=== PATIENT | female | born 1955 | race Caucasian/White ===

== ENCOUNTER 2016-08-04 15:09 | Emergency (ER) | payer OTHER ==
[~2016-08-04] VITALS: Ht 157.5 cm; Wt 83.0 kg
--- NOTE | 2016-08-04 16:41 | ED GENERAL ADULT ---
History of Present Illness General Chief Complaint: Dizziness Stated Complaint: PT WAS IN THE LOBBY AND FELT FAINT,SWEATING Source: patient, family, old records Exam Limitations: no limitations Vital Signs & Intake/Output Vital Signs & Intake/Output Vital Signs Date Time Temp Pulse Resp B/P B/P Pulse O2 O2 Flow FiO2 Mean Ox Delivery Rate 08/04 1727 97 Room Air 08/04 1702 77 147/82 08/04 1514 96.9 83 15 149/77 93 Room Air Room Air Allergies Coded Allergies: metformin (Mild, NAUSEA 08/04/16) Triage Note: PT TO ED FOR SUDDEN ONSET OF LIGHTHEADEDNESS THAT HAPPENED APPROX 30 MINS PRIOR TO ARRIVAL. DENIES CHEST PAIN, SOB, ABD PAIN. PT IS DIAPHORETIC IN TRIAGE, BUT NO ACUTE DISTRESS NOTED. EKG NSR. Triage Nurses Notes Reviewed? yes Onset: Gradual Duration: hour(s): (1) Timing: remote history Injury Environment: home Severity: moderate Modifying Factors: Improves With: other (TIME). HPI: Patient is a 60-year-old female presenting to the emergency department with chief complaint of gradual onset with malaise, fatigue and diaphoresis that started approximately 3 hours prior to arrival. She was cleaning her house this afternoon and she usually eats something around noon but got distracted. She usually also checkS her blood glucose level at that time which she has not yet done today. She then had to drive someone home around 2 PM and that's when she started feeling ill. She began feeling lightheaded. No dizziness or visual changes. She thought that her blood glucose level might be low so she went to [facility]. She to 2 bites of the [facility] and was not feeling well and cannot finish. She was close enough to the hospital where she decided to drive herself , pulled up to the [facility] and was escorted in by an ENT. At that point she was very diaphoretic. Denies any chest pain palpitations, back pain or shortness of breath at that time. While waiting to be seen in the emergency department she reports that she now feels much better. She has not drank anything since the burri. Family does report that she smokes cigarettes daily and she drinks alcohol daily. Denies any other drug use. No abdominal pain or back pain. She has been under a lot of stress lately as her son was recently admitted to the hospital for drug overdose and she is trying to find him help. She also reports that she has several doctor appointment set up in the near future because they found a spot on her liver and her lung that they want to investigate. No weight changes. Denies any actual syncopal episode but reports that she felt like she was going to pass out. Denies any lower extremities swelling, no recent travel. (BINA DRAPER) Past History Travel History Traveled to [place] past 21 day No Medical History Any Pertinent Medical History? see below for history Neurological: NONE EENT: NONE Cardiovascular: hypertension, HYPERLIPIDEMIA Respiratory: COPD, "DOT ON LUNG" Gastrointestinal: NONE Hepatic: NONE Renal: NONE Musculoskeletal: NONE Psychiatric: NONE Endocrine: DIABETES TYPE II Blood Disorders: NONE Cancer(s): NONE STATIONARY FIREMAN/Reproductive: NONE Influenza Vaccine: 12/23/09 Surgical History Surgical History: non-contributory Psychosocial History Who do you live with Mother What is your primary language Sierra Leonean Tobacco Use: Current Daily Use Daily Tobacco Use Amount/Type: => 5 Cigarettes daily ETOH Use: occasional use Illicit Drug Use: denies illicit drug use Family History Hx Contributory? No (BINA DRAPER) Review of Systems Review of Systems Constitutional: Reports: malaise. Comments Review of systems: See HPI, All other systems negative. Constitutional, no chills fever or weight loss HEENT: No visual changes no sore throat no congestion Cardiovascular: No chest pain ,palpitation , orthopnea or ankle swelling Skin, no jaundice no rashes Respiratory: No dyspnea cough sputum or hemoptysis GI: No nausea no vomiting : No dysuria No hematuria Muscle skeletal: no back pain, no neck pain, Neurologic: No numbness no confusion NO [place] Psych: No stress anxiety or depression,. Heme/endocrine: No bruising no bleeding no polyuria or polydipsia Immunology: No splenectomy or history of AIDS (BINA DRAPER) Physical Exam Physical Exam General Appearance: well developed/nourished, no apparent distress, alert, awake , comfortable Comments: Well-developed well-nourished person in no acute distress HEENT: Normal EENT exam, extraocular motion intact, no nystagmus. Pupils equally round and reactive to light and accommodation. Nose is atraumatic. External auditory canal and Tympanic membranes clear. Pharynx normal. No swelling or edema. Neck: Supple, no lymphadenopathy, normal range of motion without pain or tenderness Back: Nontender Cardiovascular: Regular rate and rhythms no rubs or gallops, normal JVP Respiratory: Chest nontender. No respiratory distress.breath sounds clear to auscultation bilaterally Abdomen: Soft, obese, nontender nondistended, no appreciable organomegaly. Normal bowel sounds. No ascites Extremity: No edema, no calf tenderness to palpation, normal and equal pulses. Muscular strength is 5 out of 5 in all extremities. Security Guards Dispatcher strength is equal and symmetric bilaterally. Neuro: Alert oriented x3, motor sensory normal, cranial nerves II through XII grossly intact. Cerebellar testing is unremarkable. Skin: No appreciable rash on exposed skin, skin is warm and dry. Psych: Mood and affect is normal, memory and judgment is normal. Core Measures ACS in differential dx? Yes CVA/TIA Diagnosis: No Severe Sepsis Present: No Septic Shock Present: No (BINA DRAPER) Progress Differential Diagnoses I considered the following diagnoses in my evaluation of the patient: Pulmonary embolus, ACS, hypoglycemia, medication reaction, aortic dissection, heatstroke, thyroid dysfunction Plan of Care: Orders Procedure Date/time Status MISTAKE 08/04 1640 Active Telemetry/Credit Charge Authorizer 08/04 1640 Active FingerStick- Glucose 08/04 1640 Active EKG 08/04 1518 Active Laboratory Tests 08/04/16 1646: D-Dimer Cancelled 08/04/16 1518: CBC w Diff Cancelled, WBC Cancelled, RBC Cancelled, Hgb Cancelled, Hct Cancelled , MCV Cancelled, MCH Cancelled, RDW Cancelled, Plt Count Cancelled, MPV Cancelled, PUBS MCHC Cancelled, Serum Alcohol Cancelled Initial ED EKG: NSR Prior EKG: unchanged Comments: Patient will like to leave prior to workup AGAINST MEDICAL ADVICE. She is alert and oriented likely intact. She'll sign AGAINST MEDICAL ADVICE form. Patient's orthostatics are negative. Blood glucose level at this time is 123. Unclear reason why patient became diaphoretic. It was explained to her that she potentially could be having a heart attack even the EKG is essentially unchanged. Patient is aware of all risks by leaving AGAINST MEDICAL ADVICE. She'll return for worsening symptoms or concerns. This could also be related to new medication that she was started on 2 days ago. (BINA DRAPER) Departure Departure Time of Disposition: 170 Disposition: LEFT AGAINST MEDICAL ADVICE Condition: Stable Clinical Impression Primary Impression: Near syncope Referrals: KIET MCDUFFIE,ERIC (PCP/Family) Additional Instructions: Follow-up with your primary care physician call TO MAKE appointment. Increase fluids. Make sure recheck blood glucose level often throughout the day. He well-balanced meals. Departure Forms: Customer Survey General Discharge Information (BINA DRAPER) PA/ACTION FINISHER Co-Sign Statement Statement: ED Attending supervision documentation- [] I saw and evaluated the patient. I have also reviewed all the pertinent lab results and diagnostic results. I agree with the findings and the plan of care as documented in the PA's/ACTION FINISHER's documentation. [X] I have reviewed the ED Record and agree with the PA's/ACTION FINISHER's documentation. [] Additions or exceptions (if any) to the PAs/ACTION FINISHER's note and plan are summarized below: [] (NICOLLE MCDUFFIE,BETH Angelo) Critical Care Note Critical Care Note Critical Care Time: non-applicable (BINA DRAPER)
[2016-08-04 17:02] VITALS: BP 147/82
== END 2016-08-04 17:32 | disposition left against medical advice (07) ==
LOC: ERH 15:09
DX: R55 Syncope and collapse (principal); I10 Essential (primary) hypertension; Z72.0 Tobacco use; E11.9 Type 2 diabetes mellitus without complications; J44.9 Chronic obstructive pulmonary disease, unspecified
CPT/HCPCS: 93005; 93010; G0480

== ENCOUNTER 2016-09-30 02:40 | Inpatient (IN) | payer OTHER ==
[~2016-09-30] VITALS: Ht 154.9 cm; Wt 85.7 kg
[~2016-09-30 02:40] MED LIST: ADVAIR 100-501 EACH INH; AMARYL1 M1 PO; ASPIRIN EC81 M1 PO; ATORVASTATIN CA40 M1 PO; FOLIC ACID0.8 M2 PO; HUMALOG100 UNIT/1; LEVEMIR100 UNIT/1; LISINOPRIL-HCT1 EACH PO; METOPROLOL SUCC25 M1 PO; PROAIR HFA8.5 GM INH; TRADJENTA5 M1 PO; TUDORZA PRESS400 MCG PO
--- NOTE | 2016-09-30 14:09 | Admission Core Measures ---
Acute Coronary Syndrome Inclusion Criteria ACS Diagnosis No Inpatient Core Measures LDL Reminder: If No, please order W/I first 24hr of stay Congestive Heart Failure Inclusion Criteria CHF Diagnosis No Cerebrovascular accident Inclusion Criteria CVA/TIA Diagnosis No Inpatient Core Measures Bedside Swallow Eval Reminder: If BSE failed, place ST order Antithrombotic Reminder: Order Antithrombotic Medication by end of day 2 Antithrombotic Reminder: Document Reason Antithrombotic Not ordered by end of day 2 AFIB/Flutter Reminder: If Present, add to problem list AFIB/Flutter Reminder: Order Anticoag Medication for pts with AFIB/Flutter Atherosclerosis Reminder: If Present, add to problem list LDL Reminder: If No, please order W/I first 24hr of stay PT Order Reminder: If No, please order Venous thromboembolism Inpatient Core Measures VTE Risk Factors: Age > 40, Obesity, [facility] d/t No contraindications No VTE Pharm Prophylaxis d/t No contraindications Inclusion Criteria - Per Current guidelines, there needs to be overlap - treatment for the first 5 days of Warfarin therapy. - Parenteral Anticoagulation (IV or SC) needs to be - given along with Warfarin therapy. VTE Diagnosis No VTE Type NONE VTE Confirmed by (Test) NONE Problem List As ranked by this Provider includes Assessment & Plan 1. S/P thoracotomy 2. COPD (chronic obstructive pulmonary disease) 3. Diabetes 4. Hypertension 5. Lung nodule HOME MEDS Home Med List Albuterol Sulfate (Proair Hfa) 90 MCG HFA.AER.AD 2 PUF INH Q4-6 PRN PRN COPD (Reported) Aspirin (Ecotrin*) 81 MG TABLET.DR 1 TAB PO DAILY PROPHO (Reported) Atorvastatin Calcium 40 MG TABLET 1 TAB PO DAILY CHOLESTEROL (Reported) Fluticasone-Salmeterol (Advair 100-50 Diskus) 100 MCG-50 MCG/DOSE BLST.W.DEV 1 PUF INH BID COPD (Reported) [FOLIC ACID] 800 MCG PO DAILY PROPHO (Reported) Glimepiride (Amaryl) 4 MG TABLET 1 TAB PO DAILY DM II (Reported) Linagliptin (Tradjenta) 5 MG TABLET 1 TAB PO DAILY DM II (Reported) Lisinopril/Hydrochlorothiazide (Lisinopril-Hctz 20-12.5 MG Tab) 20 MG-12.5 MG TABLET 1 TAB PO DAILY HTN (Reported) Metoprolol Succinate 25 MG TAB 1 TAB PO BID HTN (Reported)
--- NOTE | 2016-09-30 15:43 | Cons- CRCU ---
See Addendum RAHUL MCDUFFIERONNIE 09/30/16 1543: General Information and HPI Consulting Request Date of Consult: 09/30/16 Requested By: Dr. Sierra History of Present Illness: 60 year old woman with past medical history of NIDDM, HTN, HLD, and COPD admitted to same day surgery for right upper lobe wedge resection. Patient was transferred to the ICU for closer observation and medical management postoperatively. Presently patient reports moderate/severe right sided chest pain that she attributes to the surgical procedure. Otherwise she states that she has had intermittent chills, but admits that these aren't new. She appears sedated and lethargic. Her daughter whom is present at bedside feels it is because of the pain medications. She otherwise denies any fever, headache, substernal chest pain/discomfort, shortness of breath, cough, nausea, vomiting, diarrhea. Allergies/Medications Allergies: Coded Allergies: metformin (Mild, NAUSEA 08/04/16) Home Med List: Aclidinium [place] (Tudorza Pressair) 400 MCG/ACTUATION AER.POW.BA COPD ( Reported) Albuterol Sulfate (Proair Hfa) 90 MCG HFA.AER.AD 2 PUF INH Q4-6 PRN PRN COPD (Reported) Aspirin (Ecotrin*) 81 MG TABLET.DR 1 TAB PO DAILY PROPHO (Reported) Atorvastatin Calcium 40 MG TABLET 1 TAB PO DAILY CHOLESTEROL (Reported) [FOLIC ACID] 800 MCG PO DAILY PROPHO (Reported) Glimepiride (Amaryl) 1 MG TABLET 2 TAB PO DAILY DIABETES (Reported) Insulin Glargine,Hum.rec.anlog (Lantus Solostar) 100 UNIT/ML (3 ML) INSULN.PEN 76 UNIT SC DAILY DIABETES (Reported) Insulin Lispro (Humalog) 100 UNIT/ML CARTRIDGE DM II (Reported) Linagliptin (Tradjenta) 5 MG TABLET 1 TAB PO DAILY DM II (Reported) Metoprolol Succinate 25 MG TAB 1 TAB PO BID HTN (Reported) Current Medications: Current Medications Sig/Hilton Start time Last Medication Dose Route Stop Time Status Admin Acetaminophen 1,000 MG Q6 09/30 1800 AC IV 10/01 1201 Albuterol Sulfate 3 ML Q4 09/30 2200 AC INH Albuterol Sulfate 2 PUF Q4P PRN 09/30 1645 AC INH Aspirin Buffered 81 MG DAILY 10/01 1000 AC PO Atorvastatin Calcium 40 MG 1700 09/30 1700 AC PO Budesonide/ 2 PUF BID 09/30 2200 AC Formoterol Fumarate INH Cefazolin Sodium 2,000 MG IQ8 09/30 2000 CAN IV 10/01 0801 Cefazolin Sodium 2 GM Q8H 09/30 2000 AC 09/30 N/A 1 UNIT IV 10/01 0429 2051 Docusate Sodium 100 MG BID 09/30 2200 AC PO Fentanyl Citrate 250 MCG .STK-MED ONE 09/30 1141 DC IM 09/30 1142 Glimepiride 4 MG DAILY AC 10/01 0700 AC PO Heparin Sodium 5,000 UNIT Q8 09/30 2200 AC (Porcine) SC Hydrochlorothiazide 12.5 MG DAILY 10/01 1000 AC PO Hydromorphone HCl 2 MG .STK-MED ONE 09/30 1140 DC IM 09/30 1141 Insulin Aspart 0 TIDAC 09/30 1700 AC SC Lisinopril 20 MG DAILY 10/01 1000 AC PO Metoprolol Tartrate 50 MG BID 09/30 2200 AC PO Midazolam HCl 2 MG .STK-MED ONE 09/30 1141 DC IM 09/30 1142 Morphine Sulfate 2 MG Q2P PRN 09/30 1900 AC 09/30 IV 1927 Morphine Sulfate 4 MG Q2P PRN 09/30 1900 AC IV Ondansetron HCl 4 MG Q6P PRN 09/30 1900 AC IV Oxycodone HCl 5 MG Q4-6 PRN PRN 09/30 1900 AC PO Oxycodone HCl 10 MG Q4-6 PRN PRN 09/30 1900 AC PO Pantoprazole Sodium 40 MG DAILY 10/01 1000 AC IV Sitagliptin Phosphate 50 MG DAILY 10/01 1000 AC PO Sodium Chloride 1,000 ML Q13H 09/30 1900 AC 09/30 IV 1927 Tiotropium [place] 1 PUF DAILY 10/01 1000 AC INH Review of Systems Review of Systems Constitutional: Reports: see HPI. Past History Medical History Neurological: NONE EENT: NONE Cardiovascular: hypertension, hyperlipidemia Respiratory: COPD, "DOT ON LUNG" Gastrointestinal: NONE Hepatic: NONE Renal: NONE Musculoskeletal: NONE Psychiatric: NONE Endocrine: DIABETES TYPE II Blood Disorders: NONE Cancer(s): NONE INJECTION MOLD TOOLING TECHNICIAN/Reproductive: NONE Surgical History Surgical History: non-contributory Psychosocial History Smoking Status: Current Everyday Smoker Exam & Diagnostic Data Last 24 Hrs of Vital Signs/I&O Vital Signs Date Time Temp Pulse Resp B/P B/P Pulse O2 O2 Flow FiO2 Mean Ox Delivery Rate 10/01 1999 97.9 65 22 120/70 09/30 1854 97 Non 100% ReBreather Physical Exam General Appearance: well developed/nourished, no apparent distress, alert, awake , comfortable Other Physical Findings: General-well developed, well nourished middle aged woman in no acute distress HEENT-NCAT, PERRL, EOMI, anicteric sclera, moist mucous membranes, nasal cannula Cardio/Chest- S1, S2 w/o m/g/r; surgical dressing in place on right lateral chest wall with scant amount of serosangious drainage Lung-CTA bilaterally with diminished bibasilar breath sounds Abdomen-Soft, nontender, nondistended, bowel sounds intact Neuro-Awake and alert, oriented to person/place/time, mildly lethargic, CN II- XII grossly intact Ext-normal pulses, no cyanosis/clubbing/edema Last 48 Hrs of Labs/Johann: None Diagnostic Data CXR Results SERVICE DATE: 09/30/16- EXAM TYPE: RAD - XRY-CHEST XRAY, ONE VIEW ONLY IMPRESSION: Fluoroscopic imaging assistance was provided for the bronchoscopy procedure. SERVICE DATE: 09/30/16-1621 EXAM TYPE: RAD - XRY-PORTABLE CHEST XRAY IMPRESSION: Postoperative changes on the right, follow-up imaging is recommended. Assessment/Plan Impression/Plan: 60 year old woman with multiple medical problems admitted for right upper lobe wedge resection. Problem List: -Right upper lobe mass s/p wedge resection -Hypertension -Hyperlipidemia -Insulin-dependent diabets mellitus Plan: -ICU -Intubated -Accuchecks Q6H with Novolin while NPO with D51/2NS fluids -Restart Novolog / Levemir when eating -Chest tube care per surgical team -Post-thoracotomy care per protocol -Incentive spirometry -TRC -Supplemental oxygen, goal > 92%, taper as tolerated -NPO, advance diet per surgical team -DVT PPx at all times -FULL CODE Consult Acknowledgment - Thank you for your consult request. MIKE RANDALL MD 09/30/16 9234: Assessment/Plan Other Findings/Comments: IMike M.D. have examined this patient, reviewed available EMR data, personally reviewed images, discussed with resident/PA/NETWORK STRATEGIST, discussed management plan with housestaff and nursing staff, discussed managment plan all of healthcare providers, discussed management plan with patient and/or family, agreed with resident/PA/NETWORK STRATEGIST. The past history and parts of the chart have been autopopulated. Impression 60-year-old woman with a right upper lobe mass status post resection Plan Postthoracotomy care Incentive spirometry TRC/nebs DVT prophylaxis at all times Monitor ins and outs Monitor I's Postoperative management per cardiothoracic surgery TTS 35 min Additionally patient had a bronchoscopy prior to VATS including placement of a fiducial marker and methylene blue markings. Consult Acknowledgment - Thank you for your consult request.
--- NOTE | 2016-09-30 15:53 | RADIOLOGY REPORT ---
EXAMINATION:\H\ \N\XR CHEST CLINICAL INFORMATION: Navigational bronchoscopy for right upper lobe nodule. COMPARISON: CXR from 09/27/2016 TECHNIQUE: Fluoroscopic imaging of the chest was utilized by Dr. Sierra during navigation bronchoscopy for the right upper lobe nodule. Number of saved images: 7 Fluoroscopy time: 4.1 minutes. Dose: 77.4 mGy FINDINGS: Fluoroscopic imaging of the chest was performed during navigation bronchoscopy, nodule biopsy and placement of fiducial marker. Please refer to the operative report. IMPRESSION: Fluoroscopic imaging assistance was provided for the bronchoscopy procedure.
--- NOTE | 2016-09-30 16:07 | Admission Certification ---
Admission Certification Certification Statement - As attending physician, I certify that at the time of - admission, based on clinical presentation, severity of - symptoms, need for further diagnostic testing and - therapeutic interventions, and risk of adverse outcomes - without in-hospital treatment, in my clinical assessment, - this patient requires an acute hospital stay for a minimum - of two nights or longer. I have also considered psychsocial - factors such as support system, advanced age, financial - issues, cognitive issues, and failed out-patient treatments, - past re-admission history, safety of patient, and lack of - compliance as applicable. Specific rationale supporting this admission is: Major chest surgery with intensive care unit stay
--- NOTE | 2016-09-30 16:12 | Operative Report ---
Operative/Inv Procedure Report Surgery Date: 09/30/16 Name of Procedure: Navigational bronchoscopy with ink marking and fiducial placement Pre-Operative Diagnosis: Right upper lobe nodule Post-Operative Diagnosis: Same Estimated Blood Loss: none Surgeon/Accounts Collector: Mike KASPER MD,TETE Barrios JR Anesthesia: general endotracheal tube Operative/Procedure Note Note: After placement of monitoring lines and induction of general anesthesia survey bronchoscopy was done. There was significant inspissated mucus throughout the bronchial tree and this was cleared clearly as possible. The navigational system was then registered and the guider catheter was advanced to the posterior segmental bronchus. The catheter came within 1 cm of the nodule. 0.75 mL of methylene blue was injected and a fiducial marker was placed adjacent to the nodule. The system was removed and there was no evidence of bleeding. The procedure then continued as the thoracoscopy. CC: PRAKASH MCDUFFIE,MIKE
--- NOTE | 2016-09-30 16:17 | Operative Report ---
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 The double-lumen endotracheal tube was appropriately positioned with fiberoptic bronchoscopy. The patient was placed in the left lateral decubitus position and her right chest was prepped and draped in sterile fashion. An access thoracostomy site was made and 3 further working ports were used. The lung was incredibly noncompliant and there was poor separation station of the fissures. During the procedure patient did have some bouts of desaturations which were corrected. There was also a friability to the lung tissue itself. Given these findings a decision was made that lobectomy would probably not be a good option for her postoperatively with concerns for her having significant respiratory problems. The thoracoscope was introduced and the methylene blue was seen on the surface of the lung. This area was grasped and the was then resected with multiple applications of the Endo JARVIS stapler. Intraoperative frozen section showed a very small nodule with good margins and a suspicion of non-small cell carcinoma with permanent histology pending. The lung was irrigated and all of the sites were found to be hemostatic. A 32 Malay chest tube was placed anteriorly to the apex and the lung was then reinsufflated under direct vision. The access thoracostomy sites were closed with deep Vicryl suture followed by running Vicryl subcuticular suture. Patient tolerated the procedure well and brought to recovery room awake and extubated in stable condition. CC: KIET MCDUFFIE,ERIC; PRAKASH MCDUFFIE,LAITH
--- NOTE | 2016-09-30 16:57 | RADIOLOGY REPORT ---
EXAMINATION: XR PORTABLE CHEST CLINICAL INFORMATION: Status post right upper lobe wedge resection. COMPARISON: 09/27/2016. TECHNIQUE: Portable frontal view of the chest was obtained. FINDINGS: Lung volumes are diminished. Right-sided thoracostomy is identified with its tip at the medial apex without evidence of an associated pneumothorax on this image which is is not labeled as upright or supine. There is a small-moderate amount of subcutaneous emphysema in the right chest wall inferior to the tube. There is an oval focus of probable atelectasis along the wedge resection staple line with mild bibasilar atelectasis also noted. IMPRESSION: Postoperative changes on the right, follow-up imaging is recommended.
[2016-09-30] MEDS ORDERED: LANTUS SOL100 UNIT/1 SC (17:05)
[2016-09-30 20:00] VITALS: BP 120/70
--- NOTE | 2016-09-30 20:19 | NUR ---
ADMITTED FROM PACU RIGHT UPPER LOBECTOMY CT TO LWS ROSALINDA PATENT DROWSY BUT AROUSABLE VSS SEE FLOWSHEET CARTER PATENT IVF ORDERED MEDICATED FOR PAIN
[2016-09-30 22:00] VITALS: BP 122/78
[2016-10-01] VITALS (9 sets, daily range): BP systolic 80–112; BP diastolic 42–64
--- NOTE | 2016-10-01 00:31 | PN- Thoracic Surgery ---
Subjective Subjective: Postop check Pt admits to moderate discomfort at the chest tube site, but describes it more as a "pressure" vs. true pain, slightly worse with deep breathing. She is tolerating sips of water. No nausea or emesis. Quinteros catheter and arterial line remain in place. Objective Vital Signs and I&Os Vital Signs Date Time Temp Pulse Resp B/P B/P Pulse O2 O2 Flow FiO2 Mean Ox Delivery Rate 09/300 Nasal 5.0L Cannula 09/30 2199 97.8 66 20 122/78 09/30 2157 66 126/62 10/01 1999 97.9 65 22 120/70 09/30 1854 97 Non 100% ReBreather Intake & Output 10/01 0810/01 0000 09/30 1600 09/30 0809/30 0000 09/29 1600 Intake Total 575 Output Total 140 Balance 435 Intake, IV 375 Intake, Oral 200 Output, Chest 40 Tube Drainage Output, Urine 100 Patient 190 lb Weight Weight Reported by Patient Measurement Method Physical Exam: Gen: Pt is awake and alert. Sitting upright in bed at almost 90 degrees for comfort. NAD. Cardiac: regular Pulmonary: Coarse lung sounds noted with expiratory rhonchi, worse on the right side. Aeration noted throughout. CT with a small amount of serosanginous output. Dressings with moderate bloody drainage, but not leaking outside borders. Abdomen: Soft, distended, nontender. Ext: No significant edema or calf tenderness. Assessment/Plan Assessment/Plan Patient is a 60-year-old female with a history of COPD, insulin-dependent diabetes, hypertension, hyperlipidemia, who is now postoperative day #0 status post right VATS wedge resection. Patient tolerated the procedure well and was transferred to the critical care unit (as planned) with [address]. She remains hemodynamically stable, but has a small air leak and continues to require 5 L of O2 to maintain her sats. -Continue chest tube to Pleur-evac suction. Follow-up chest x-ray in the morning. -Encourage incentive spirometer and deep breathing. -Pain control with intermittent morphine and IV acetaminophen. -Continue ice chips and sips of water for now. We will advance diet as tolerated and with increased bowel function, likely clears in the morning. -Antibiotics for 24 hour prophylaxis. -Subcutaneous heparin and Alps for DVT prophylaxis. -Home meds have been resumed, including beta stephanie. - Core Measures/Miscellaneous Venous Thromboembolism VTE Risk Factors: Age > 40, Cancer/chemo/oth therapy, Smoking, Surgery VTE Contraindications: No Contraindications VTE Diagnosis: No VTE Type: NONE VTE Confirmed by (Test): NONE Beta Stephanie Is Beta Stephanie a Home Med? Yes If Yes, Was This Ordered Today? Yes Antibiotics Is Patient on Antibiotics? Yes If Yes: prophylaxis
[2016-10-01 05:30] LABS: ABSOLUTE BASOPHIL COUNT 0 /CUMM (0.0-0.2); ABSOLUTE EOSINOPHIL COUNT 0 /CUMM (0.0-0.7); ABSOLUTE GRANULOCYTE CT 13.3 /CUMM (1.4-6.5); ABSOLUTE MONOCYTE COUNT 0.9 /CUMM (0.10-0.60); BASOPHIL % 0 % (0.0-2.0); EOSINOPHIL % 0 % (0-5); GRANULOCYTE % 87.9 % (42.2-75.2); HEMATOCRIT 42.7 % (37-47); MEAN CORPUSCULAR HGB 33.8 PG (27.0-31.0); MEAN CORPUSCULAR VOLUME 102.1 FL (81.0-99.0); MEAN PLATELET VOLUME 9.1 FL (7.4-10.4); PLATELET COUNT 185 /CUMM (130-400); RBC DISTRIBUTION WIDTH 15.2 % (11.5-14.5); RED BLOOD CELL CT 4.18 /CUMM (4.20-5.40); WHITE BLOOD CELL COUNT 15.1 /CUMM (4.8-10.8)
--- NOTE | 2016-10-01 05:53 | PN- Thoracic Surgery ---
Subjective Subjective: No significant changes versus last night. Patient admits to minor discomfort and awareness of the chest tube, but denies significant pain. A productive cough and makes effort to use her spirometer. She is tolerating sips of water and requesting increased by mouth intake. No nausea or vomiting. Objective Vital Signs and I&Os Vital Signs Date Time Temp Pulse Resp B/P B/P Pulse O2 O2 Flow FiO2 Mean Ox Delivery Rate 10/01 0600 62 20 90/54 10/01 0402 62 20 101/56 10/01 0402 96 Nasal 4.0L Cannula 10/01 0200 62 24 97/61 10/01 0113 97 Nasal 4.0L Cannula 10/01 0000 97.7 66 24 112/54 10/01 0000 93 Nasal 5.0L Cannula 10/01 0000 97.7 66 24 112/54 93 Nasal 5.0L Cannula 09/30 2250 Nasal 5.0L Cannula 09/30 2200 97.8 66 20 122/78 09/30 2157 66 126/62 09/30 2000 97.9 65 22 120/70 09/30 1854 97 Non 100% ReBreather Intake & Output 10/01 0800 10/01 0000 09/30 1600 09/30 0800 09/30 0000 09/29 1600 Intake Total 1050 575 Output Total 310 140 Balance 740 435 Intake, IV 850 375 Intake, Oral 200 200 Output, Chest 10 40 Tube Drainage Output, Urine 300 100 Patient 190 lb Weight Weight Reported by Patient Measurement Method Physical Exam: Gen.: Patient is awake and alert. He sits upright in the bed. Cardiac: Regular Pulmonary: Moderate amount of drainage on the dressing sites, unchanged versus last night. They were not changed as they can be changed at the time of the chest tube removal. Chest tube output is minimal and serosanguineous. There is a small air leak. Breath sounds continue to be rhonchorous. Results Last 48 Hours of Labs: Laboratory Tests 10/01 0436 Chemistry Sodium (137 - 145 mmol/L) 134 L Potassium (3.5 - 5.1 mmol/L) 5.0 Chloride (98 - 107 mmol/L) 98 Carbon Dioxide (22 - 30 mmol/L) 27 Anion Gap (5 - 16) 9 BUN (7 - 17 mg/dL) 26 H Creatinine (0.5 - 1.0 mg/dL) 0.8 Estimated GFR (>60 ml/min) > 60 BUN/Creatinine Ratio (7 - 25 %) 32.5 H Glucose (65 - 99 mg/dL) 198 H Phosphorus (2.5 - 4.5 mg/dL) 5.3 H Magnesium (1.6 - 2.3 mg/dL) 1.7 Total Bilirubin (0.2 - 1.3 mg/dL) 0.5 Direct Bilirubin (< 0.4 mg/dL) 0.3 AST (14 - 36 U/L) 45 H ALT (9 - 52 U/L) 41 Alkaline Phosphatase (<127 U/L) 58 Total Protein (6.3 - 8.2 g/dL) 6.7 Albumin (3.5 - 5.0 g/dL) 3.8 Hematology CBC w Diff NO MAN DIFF REQ WBC (4.8 - 10.8 /CUMM) 15.1 H RBC (4.20 - 5.40 /CUMM) 4.18 L Hgb (12.0 - 16.0 G/DL) 14.1 Hct (37 - 47 %) 42.7 MCV (81.0 - 99.0 FL) 102.1 H MCH (27.0 - 31.0 PG) 33.8 H RDW (11.5 - 14.5 %) 15.2 H Plt Count (130 - 400 /CUMM) 185 MPV (7.4 - 10.4 FL) 9.1 Gran % (42.2 - 75.2 %) 87.9 H Lymphocytes % (20.5 - 51.1 %) 6.5 L Monocytes % (1.7 - 9.3 %) 5.6 Eosinophils % (0 - 5 %) 0 Basophils % (0.0 - 2.0 %) 0 L Absolute Granulocytes (1.4 - 6.5 /CUMM) 13.3 H Absolute Lymphocytes (1.2 - 3.4 /CUMM) 1.0 L Absolute Monocytes (0.10 - 0.60 /CUMM) 0.9 H Absolute Eosinophils (0.0 - 0.7 /CUMM) 0 Absolute Basophils (0.0 - 0.2 /CUMM) 0 PUBS MCHC (33.0 - 37.0 G/DL) 33.0 Assessment/Plan Assessment/Plan Patient is a 60-year-old female with a history of COPD, insulin-dependent diabetes, hypertension, hyperlipidemia, who is now postoperative day #1 status post right VATS wedge resection. She has she has [address] and remains hemodynamically stable. -Continue chest tube to Pleur-evac suction. Follow-up chest x-ray this morning. -Encourage incentive spirometer and deep breathing. -Out of bed to chair. -Pain control with intermittent morphine and IV acetaminophen. -Advance to clears. Hep-Lock IV fluids. -DC Quinteros and arterial line. -Antibiotics for 24 hour prophylaxis complete. -Subcutaneous heparin and Alps for DVT prophylaxis. -Home meds have been resumed, including beta stephanie. -Will d/w attending. Core Measures/Miscellaneous Venous Thromboembolism VTE Risk Factors: Age > 40, Cancer/chemo/oth therapy, Smoking, Surgery VTE Contraindications: No Contraindications VTE Diagnosis: No VTE Type: NONE VTE Confirmed by (Test): NONE Beta Stephanie Is Beta Stephanie a Home Med? Yes If Yes, Was This Ordered Today? Yes Antibiotics Is Patient on Antibiotics? No
--- NOTE | 2016-10-01 08:09 | RADIOLOGY REPORT ---
EXAMINATION: XR PORTABLE CHEST CLINICAL INFORMATION: Status post right upper wedge resection. COMPARISON: 09/30/2016 TECHNIQUE: Portable frontal view of the chest was obtained. FINDINGS: Patient status post wedge resection of right upper lobe. Lungs are hypoinflated and there are persistent bibasilar opacities compatible with atelectasis, slightly increased compared to the prior radiograph. Also, there is persistent hazy opacity in the right upper lobe which could represent atelectasis and/or pulmonary hemorrhage. The right thoracostomy tube terminates in the medial right apex. No pneumothorax. Cardiac silhouette exhibits stable enlargement. No acute osseous abnormality. IMPRESSION: 1. Hypoinflated lungs and bibasilar atelectasis, status post right upper lobe wedge resection and thoracostomy tube placement. 2. Persistent hazy opacity in the right upper lung from atelectasis or possibly postbiopsy hemorrhage. 3. Cardiomegaly without pulmonary edema.
--- NOTE | 2016-10-01 08:13 | Event Note ---
Event Note Event Note: Chest tube placed to water seal. ? removal later today vs tomorrow.
--- NOTE | 2016-10-01 13:00 | NUR ---
NOTIFIED SURGICAL [facility] MEYERS THAT PATIENT WOULD LIKE TO SPEAK WITH DR KASPER REGARDING SURGERY AND FUTURE PLAN OF CARE. PA WILL NOTIFY DR KASPER.
--- NOTE | 2016-10-01 13:28 | PN- Pulmonary ---
Subjective HPI/Critical Care Issues: No significant changes versus last night. Patient admits to minor discomfort and awareness of the chest tube, but denies significant pain. A productive cough and makes effort to use her spirometer. She is tolerating sips of water and requesting increased by mouth intake. No nausea or vomiting. Objective Current Medications: Current Medications Sig/Hilton Start time Last Medication Dose Route Stop Time Status Admin Acetaminophen 1,000 MG Q6 09/30 1800 DC 10/01 IV 10/01 1201 1246 Albuterol Sulfate 3 ML Q4 09/30 2200 AC 10/01 INH 0918 Albuterol Sulfate 2 PUF Q4P PRN 09/30 1645 AC INH Aspirin Buffered 81 MG DAILY 10/01 1000 AC 10/01 PO 1014 Atorvastatin Calcium 40 MG 1700 09/30 1700 AC 09/30 PO 2155 Budesonide/ 2 PUF BID 09/30 2200 AC 10/01 Formoterol Fumarate INH 1015 Cefazolin Sodium 2,000 MG IQ8 09/30 2000 CAN IV 10/01 0801 Cefazolin Sodium 2 GM Q8H 09/30 2000 DC 10/01 N/A 1 UNIT IV 10/01 0429 0430 Docusate Sodium 100 MG BID 09/30 2200 AC 10/01 PO 1013 Glimepiride 4 MG DAILY AC 10/01 0700 AC 10/01 PO 0837 Heparin Sodium 5,000 UNIT Q8 09/30 2200 AC 10/01 (Porcine) SC 0545 Hydrochlorothiazide 12.5 MG DAILY 10/01 1000 AC 10/01 PO 1014 Hydromorphone HCl 2 MG .STK-MED ONE 09/30 1738 DC IM 09/30 1739 Insulin Aspart 0 TIDAC 09/30 1700 AC 10/01 SC 1245 Lisinopril 20 MG DAILY 10/01 1000 AC 10/01 PO 1015 Metoprolol Tartrate 50 MG BID 09/30 2200 AC 10/01 PO 1014 Morphine Sulfate 2 MG Q2P PRN 09/30 1900 AC 09/30 IV 1927 Morphine Sulfate 4 MG Q2P PRN 09/30 1900 AC 10/01 IV 1245 Ondansetron HCl 4 MG Q6P PRN 09/30 1900 AC IV Oxycodone HCl 5 MG Q4-6 PRN PRN 09/30 1900 AC PO Oxycodone HCl 10 MG Q4-6 PRN PRN 09/30 1900 AC PO Pantoprazole Sodium 40 MG DAILY 10/01 1000 AC 10/01 IV 1015 Sitagliptin Phosphate 50 MG DAILY 10/01 1000 AC 10/01 PO 1014 Sodium Chloride 1,000 ML Q13H 09/30 1900 DC 09/30 IV 1927 Tiotropium [place] 1 PUF DAILY 10/01 1000 AC 10/01 INH 1016 Vital Signs & I&O Last 24 Hrs of Vitals and I&O: Vital Signs Date Time Temp Pulse Resp B/P B/P Pulse O2 O2 Flow FiO2 Mean Ox Delivery Rate 10/01 1200 Nasal 1.0L Cannula 10/01 1014 68 134/70 10/01 0935 93 Nasal 1.0L Cannula 10/01 0800 Nasal Cannula 10/01 0800 97.2 68 18 110/64 95 Nasal 4.0L Cannula 10/01 0600 62 20 90/54 10/01 0402 62 20 101/56 10/01 0402 96 Nasal 4.0L Cannula 10/01 0200 62 24 97/61 10/01 0113 97 Nasal 4.0L Cannula 10/01 0000 97.7 66 24 112/54 10/01 0000 93 Nasal 5.0L Cannula 10/01 0000 97.7 66 24 112/54 93 Nasal 5.0L Cannula 09/30 2250 Nasal 5.0L Cannula 09/30 2200 97.8 66 20 122/78 09/30 2157 66 126/62 09/30 2000 97.9 65 22 120/70 09/30 1854 97 Non 100% ReBreather Intake & Output 10/01 1600 10/01 0800 10/01 0000 Intake Total 1050 575 Output Total 310 140 Balance 740 435 Intake, IV 850 375 Intake, Oral 200 200 Output, Chest 10 40 Tube Drainage Output, Urine 300 100 Patient 190 lb Weight Weight Reported by Patient Measurement Method Laboratory Tests 10/01 10/01 0845 0436 Chemistry Sodium (137 - 145 mmol/L) 134 L Potassium (3.5 - 5.1 mmol/L) 4.8 5.0 Chloride (98 - 107 mmol/L) 98 Carbon Dioxide (22 - 30 mmol/L) 27 Anion Gap (5 - 16) 9 BUN (7 - 17 mg/dL) 26 H Creatinine (0.5 - 1.0 mg/dL) 0.8 Estimated GFR (>60 ml/min) > 60 BUN/Creatinine Ratio (7 - 25 %) 32.5 H Glucose (65 - 99 mg/dL) 198 H Phosphorus (2.5 - 4.5 mg/dL) 5.3 H Magnesium (1.6 - 2.3 mg/dL) 1.7 Total Bilirubin (0.2 - 1.3 mg/dL) 0.5 Direct Bilirubin (< 0.4 mg/dL) 0.3 AST (14 - 36 U/L) 45 H ALT (9 - 52 U/L) 41 Alkaline Phosphatase (<127 U/L) 58 Total Protein (6.3 - 8.2 g/dL) 6.7 Albumin (3.5 - 5.0 g/dL) 3.8 Hematology CBC w Diff NO MAN DIFF REQ WBC (4.8 - 10.8 /CUMM) 15.1 H RBC (4.20 - 5.40 /CUMM) 4.18 L Hgb (12.0 - 16.0 G/DL) 14.1 Hct (37 - 47 %) 42.7 MCV (81.0 - 99.0 FL) 102.1 H MCH (27.0 - 31.0 PG) 33.8 H RDW (11.5 - 14.5 %) 15.2 H Plt Count (130 - 400 /CUMM) 185 MPV (7.4 - 10.4 FL) 9.1 Gran % (42.2 - 75.2 %) 87.9 H Lymphocytes % (20.5 - 51.1 %) 6.5 L Monocytes % (1.7 - 9.3 %) 5.6 Eosinophils % (0 - 5 %) 0 Basophils % (0.0 - 2.0 %) 0 L Absolute Granulocytes (1.4 - 6.5 /CUMM) 13.3 H Absolute Lymphocytes (1.2 - 3.4 /CUMM) 1.0 L Absolute Monocytes (0.10 - 0.60 /CUMM) 0.9 H Absolute Eosinophils (0.0 - 0.7 /CUMM) 0 Absolute Basophils (0.0 - 0.2 /CUMM) 0 PUBS MCHC (33.0 - 37.0 G/DL) 33.0 Microbiology Date/Time Procedure - Status Source Growth 07/13 1845 Surveillance Culture - RECD UPPER RESP 09/30 1845 Surveillance Culture - RECD GI 09/30 1305 Urine Culture - RES URINE ROUT Impression/Plan Impression/Plan Impression/Plan: Gen.: Patient is awake and alert. He sits upright in the bed. Cardiac: Regular Pulmonary: Moderate amount of drainage on the dressing sites, Chest tube output is minimal and serosanguineous. There is a small air leak. Breath sounds continue to be rhonchorous. Patient is a 60-year-old female with a history of COPD, insulin-dependent diabetes, hypertension, hyperlipidemia, who is now postoperative day #1 status post right VATS wedge resection. Plan cont post thoracotomy mgt oob to chair chest tube mgt per surg IV hep lock abx cont meds resume out pt meds will follow
--- NOTE | 2016-10-01 16:25 | PN- Resident CRCU ---
Subjective HPI/CRCU Issues: This morning patient is feeling better. She is complaining of little discomfort at the site of chest tube. No breathing difficulty, chest pain or palpitation. Objective Vital Signs & I&O Last 8 Hrs of Vitals and I&O: Intake & Output 10/01 1600 Intake Total 1440 Output Total 310 Balance 1130 Intake, IV 600 Intake, Oral 840 Output, Chest 10 Tube Drainage Output, Urine 300 Temperature 97.2 Pulse 68 Respiratory rate 18 Blood pressure 110/64 Oxygen saturation 95% on 1 L of oxygen via nasal cannula Exam General Appearance: well developed/nourished, no apparent distress, alert, awake , anxious Respiratory: rhonchi Cardiovascular: regular rate/rhythm Gastrointestinal: normal bowel sounds, soft, non-tender Extremities: no edema Current Medications: Current Medications Sig/Hilton Start time Last Medication Dose Route Stop Time Status Admin Acetaminophen 1,000 MG Q6 09/30 1800 DC 10/01 IV 10/01 1201 1246 Albuterol Sulfate 3 ML Q4 09/30 2200 AC 10/01 INH 1606 Albuterol Sulfate 2 PUF Q4P PRN 09/30 1645 AC INH Aspirin Buffered 81 MG DAILY 10/01 1000 AC 10/01 PO 1014 Atorvastatin Calcium 40 MG 1700 09/30 1700 AC 09/30 PO 2155 Budesonide/ 2 PUF BID 09/30 2200 AC 10/01 Formoterol Fumarate INH 1015 Cefazolin Sodium 2,000 MG IQ8 09/30 2000 CAN IV 10/01 0801 Cefazolin Sodium 2 GM Q8H 09/30 2000 DC 10/01 N/A 1 UNIT IV 10/01 0429 0430 Docusate Sodium 100 MG BID 09/30 2200 AC 10/01 PO 1013 Glimepiride 4 MG DAILY AC 10/01 0700 AC 10/01 PO 0837 Heparin Sodium 5,000 UNIT Q8 09/30 2200 AC 10/01 (Porcine) SC 1515 Hydrochlorothiazide 12.5 MG DAILY 10/01 1000 AC 10/01 PO 1014 Hydromorphone HCl 2 MG .STK-MED ONE 09/30 1738 DC IM 09/30 1739 Insulin Aspart 0 TIDAC 09/30 1700 AC 10/01 SC 1245 Lisinopril 20 MG DAILY 10/01 1000 AC 10/01 PO 1015 Magnesium Oxide 400 MG DAILY 10/01 1543 AC PO Metoprolol Tartrate 50 MG BID 09/30 2200 AC 10/01 PO 1014 Morphine Sulfate 2 MG Q3 PRN 10/01 1543 AC IV Morphine Sulfate 4 MG Q3 PRN 10/01 1543 AC IV Morphine Sulfate 2 MG Q2P PRN 09/30 1900 DC 09/30 IV 1927 Morphine Sulfate 4 MG Q2P PRN 09/30 1900 DC 10/01 IV 1245 Ondansetron HCl 4 MG Q6P PRN 09/30 1900 AC IV Oxycodone HCl 5 MG Q4-6 PRN PRN 09/30 1900 AC PO Oxycodone HCl 10 MG Q4-6 PRN PRN 09/30 1900 AC PO Pantoprazole Sodium 40 MG DAILY 10/01 1000 AC 10/01 IV 1015 Sitagliptin Phosphate 50 MG DAILY 10/01 1000 AC 10/01 PO 1014 Sodium Chloride 500 ML BOLUS ONE 10/01 1515 DC 10/01 IV 10/01 1614 1516 Sodium Chloride 1,000 ML Q13H 09/30 1900 DC 09/30 IV 1927 Tiotropium [place] 1 PUF DAILY 10/01 1000 AC 10/01 INH 1016 Impression/Plan Impression/Problem List Impression: 60 year old woman with past medical history of NIDDM, HTN, HLD, and COPD. 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 PLAN * Follow-up postthoracotomy respiratory protocol * Adequate pain management * Chest tube management/removal per surgery * Follow-up RUL pathology * Continue GI and DVT prophylaxis * Full code Problem List: 1. Lung nodule Pain Ratin Tomorrow's Labs & Rationales: cbc Plan DVT/Prophylaxis: mechanical, pharmacological
--- NOTE | 2016-10-01 16:59 | NUR ---
AAO COLOR GOOD SKIN WARM AND DRY,1LNC TRC PRN SAT 95, SUPINE HOB UP 45 DEGREES,MONITOR 1ST DEGREE AVB,TAKING CRACKERS AT PRESENT NOT HUNGRY NOW,VD EARLIER THIS PM WAS OOB TO BR/COMMODE,ALPS,2 HV SITES PRESENT,AUTO CUFF ON, B/P 90/60. PT TOLERATING LOW B/P VERY WELL. VS BY DR KASPER. A LITTLE ANXIETY CIWA [address] TO RT CW UNDERWATER SEAL ATRIUM SS DARK PK COLOR. PAIN SCALE 8 BUT B/P LOWER ORDERS RECIEVED BY SURG PA.
--- NOTE | 2016-10-01 20:32 | NUR ---
2010= FORREST DEJESUS MADE AWARE SBP 70-80 DOPPLER. PT DROWSEY/AROUSABLE. PER ORDERS GIVE 1L NS NOW AND DRAW STAT CBC AND ICU PANEL. WILL CONT TO MONITOR.
[2016-10-01 20:44] LABS: ABSOLUTE BASOPHIL COUNT 0 /CUMM (0.0-0.2); ABSOLUTE EOSINOPHIL COUNT 0.1 /CUMM (0.0-0.7); ABSOLUTE GRANULOCYTE CT 11.6 /CUMM (1.4-6.5); ABSOLUTE LYMPH COUNT 1.7 /CUMM (1.2-3.4); BASOPHIL % 0.1 % (0.0-2.0); EOSINOPHIL % 0.4 % (0-5); GRANULOCYTE % 80.9 % (42.2-75.2); HEMATOCRIT 39.4 % (37-47); MEAN CORPUSCULAR HGB 33.5 PG (27.0-31.0); MEAN CORPUSCULAR HGB CONC 32.5 G/DL (33.0-37.0); MEAN PLATELET VOLUME 8.4 FL (7.4-10.4); PLATELET COUNT 161 /CUMM (130-400); RBC DISTRIBUTION WIDTH 14.8 % (11.5-14.5); RED BLOOD CELL CT 3.83 /CUMM (4.20-5.40); WHITE BLOOD CELL COUNT 14.4 /CUMM (4.8-10.8)
--- NOTE | 2016-10-01 23:00 | RADIOLOGY REPORT ---
EXAMINATION: XR PORTABLE CHEST CLINICAL INFORMATION: Follow-up wedge resection right upper lobe. COMPARISON: Portable chest x-ray performed earlier the same day. TECHNIQUE: Portable portable upright view of the chest was obtained. FINDINGS: The cardiomediastinal silhouette is unremarkable. There is increasing opacity identified identified just medial to the staple line in the right mid to lower lung field, likely related to recent surgical procedure. Developing infiltrate and pneumonia less likely though not excluded. Left basilar atelectasis appears somewhat improved. Left-sided thoracostomy tube remains unchanged in position without evidence of an underlying pneumothorax. IMPRESSION: Slight increase opacity in the right mid to lower lung field likely more likely thought to represent atelectasis No pneumothorax.
--- NOTE | 2016-10-01 23:00 | NUR ---
2ND 1L NS BOLUS GIVEN WITHOUT EFFECT. FLUMAZENIL GIVEN WITH LITTLE EFFECT. BLADDER SCAN 50ML. CARTER INSERTED 45ML URINE OUT PUT. SBP REMAINS 70-80'S. MD RODAS AWARE
[2016-10-02] VITALS (11 sets, daily range): BP systolic 82–140; BP diastolic 00–73
--- NOTE | 2016-10-02 01:00 | NUR ---
PT ATTEMPTED TO GET OOB. REMINDED OF CHEST TUBE AND WIRES ATTACHED. REMINDED THAT SHE IS NOT ABLE TO GET OUT OF BED ON OWN. BED ALARM ON. WILL CONT TO MONITOR
[2016-10-02 04:51] LABS: ABSOLUTE BASOPHIL COUNT 0 /CUMM (0.0-0.2); ABSOLUTE EOSINOPHIL COUNT 0.1 /CUMM (0.0-0.7); ABSOLUTE GRANULOCYTE CT 9.5 /CUMM (1.4-6.5); ABSOLUTE LYMPH COUNT 1.5 /CUMM (1.2-3.4); ABSOLUTE MONOCYTE COUNT 1.1 /CUMM (0.10-0.60); BASOPHIL % 0.3 % (0.0-2.0); EOSINOPHIL % 0.4 % (0-5); HEMATOCRIT 38.1 % (37-47); MEAN CORPUSCULAR HGB CONC 32.8 G/DL (33.0-37.0); MEAN CORPUSCULAR VOLUME 103.5 FL (81.0-99.0); PLATELET COUNT 153 /CUMM (130-400); RBC DISTRIBUTION WIDTH 14.9 % (11.5-14.5); RED BLOOD CELL CT 3.68 /CUMM (4.20-5.40); WHITE BLOOD CELL COUNT 12.2 /CUMM (4.8-10.8)
--- NOTE | 2016-10-02 05:38 | PN- Thoracic Surgery ---
See Addendum Subjective Subjective: hypotension last evening- had ativan for ?etoh w/d, then sleepy and hypotensive, got flumazenil x1 and multiple fluid boluses. Labs at that time showed stable HCT and AURELIO with Cr 1.6 (from 0.8 earlier in day) with borderline UO. At this time, SBP better in low 100s. AURELIO improved after IVF, but still elevated. good uo. denies sob. some CP at tube site, wants CT out. Objective Vital Signs and I&Os Vital Signs Date Time Temp Pulse Resp B/P B/P Pulse O2 O2 Flow FiO2 Mean Ox Delivery Rate 10/02 0400 97.8 68 16 102/57 10/02 0400 95 Nasal 4.0L Cannula 10/02 0200 98.0 76 20 82/60 10/02 0132 99 Nasal 4.0L Cannula 10/02 0000 98.0 64 14 94/00 10/02 0000 98.0 64 14 94/00 92 Nasal 4.0L Cannula 10/02 0000 92 Nasal 4.0L Cannula 10/01 2200 98.0 78 22 85/63 10/02 1999 98.0 70 20 80/42 10/02 1999 94 Nasal 2.0L Cannula 10/01 2000 92 Nasal 2.0L Cannula 10/01 1814 63 23 82/55 10/01 1705 95 Nasal 1.0L Cannula 10/01 1637 96.8 63 22 90/60 14 1637 96.8 63 22 90/60 95 10/01 1200 Nasal 1.0L Cannula 10/01 1014 68 134/70 10/01 0935 93 Nasal 1.0L Cannula 10/01 0800 Nasal Cannula 10/01 0800 97.2 68 18 110/64 95 Nasal 4.0L Cannula 10/01 0600 62 20 90/54 Intake & Output 10/02 0800 15 0000 10/01 1600 10/01 0800 10/01 0000 09/30 1600 Intake Total 2200 1440 1050 575 Output Total 85 310 310 140 Balance 2115 1130 740 435 Intake, IV 2080 600 850 375 Intake, Oral 120 840 200 200 Output, Chest 40 10 10 40 Tube Drainage Output, Urine 45 300 300 100 Patient 190 lb Weight Weight Reported by Patient Measurement Method UO: 500/8hr CT out: 100cc since 10pm, serosang Physical Exam: GEN: NAD CARD: s1s2 RRR PULM: +bs throughout, though coarse. dressings with bloody staining, R CTx1 to WS, no al. EXT: calves soft nt Assessment/Plan Assessment/Plan A: POD2 sp R vats, wedge rsxn, with new AURELIO and hypotension improving with IVF. P: am CXR, ?DC CT IVF trend labs ciwa appreciate medicine input will dw attending Core Measures/Miscellaneous Venous Thromboembolism VTE Risk Factors: Age > 40, Cancer/chemo/oth therapy, Smoking, Surgery VTE Contraindications: No Contraindications VTE Diagnosis: No VTE Type: NONE VTE Confirmed by (Test): NONE Beta Stephanie Is Beta Stephanie a Home Med? Yes If Yes, Was This Ordered Today? Yes Antibiotics Is Patient on Antibiotics? No
--- NOTE | 2016-10-02 07:45 | RADIOLOGY REPORT ---
EXAMINATION: XR PORTABLE CHEST CLINICAL INFORMATION: Status-post right upper lobe wedge resection. COMPARISON: Prior chest radiographs, most recently 10/01/2016. TECHNIQUE: Portable frontal view of the chest was obtained. FINDINGS: There is stable mild cardiomegaly. There is atherosclerotic change of the aortic knob. No congestive heart failure is seen. A right thoracostomy tube is unchanged, with tip positioned at the medial apex. A very small right pneumothorax is seen. There is stable right mid and lower lung field airspace disease. Mild left base atelectasis is suspected. There is a small right pleural effusion, and no definite left pleural effusion is seen. There is no acute osseous abnormality. IMPRESSION: 1. There is stable position of a right thoracostomy tube with only very small residual pneumothorax. 2. There is continued stable moderate right mid and lower lung field airspace disease. A small right pleural effusion is seen. 3. There is mild left base atelectasis.
--- NOTE | 2016-10-02 10:18 | PN- Resident CRCU ---
Impression/Plan Plan DVT/Prophylaxis: mechanical, pharmacological
--- NOTE | 2016-10-02 11:26 | PN- Pulmonary ---
Subjective HPI/Critical Care Issues: hypotension last evening- had ativan for ?etoh w/d, then sleepy and hypotensive, got flumazenil x1 and multiple fluid boluses. Labs at that time showed stable HCT and AURELIO with Cr 1.6 (from 0.8 earlier in day) with borderline UO. At this time, SBP better in low 100s. AURELIO improved after IVF, but still elevated. good uo. denies sob. some CP at tube site, wants CT out. Objective Current Medications: Current Medications Sig/Hilton Start time Last Medication Dose Route Stop Time Status Admin Acetaminophen 1,000 MG Q6 09/30 1800 DC 10/01 IV 10/01 1201 1246 Albuterol Sulfate 3 ML Q4 09/30 2200 AC 10/02 INH 0832 Albuterol Sulfate 2 PUF Q4P PRN 09/30 1645 AC INH Aspirin Buffered 81 MG DAILY 10/01 1000 AC 10/02 PO 1024 Atorvastatin Calcium 40 MG 1700 09/30 1700 AC 10/01 PO 1726 Budesonide/ 2 PUF BID 09/30 2200 AC 10/02 Formoterol Fumarate INH 1024 Dextrose/Sodium 1,000 ML .Q10H 10/02 0730 AC 10/02 Chloride IV 0803 Dextrose/Sodium 1,000 ML Q10H 10/01 2145 DC 10/02 Chloride [place] 0650 Docusate Sodium 100 MG BID 09/30 2200 AC 10/02 PO 1024 Flumazenil 0.2 MG ONCE ONE 10/01 2130 DC 10/01 IV 10/01 2131 2130 Flumazenil 1.2 MG ONCE ONE 10/01 2115 CAN IV 10/01 2116 Glimepiride 4 MG DAILY AC 10/01 0700 AC 10/02 PO 1024 Heparin Sodium 5,000 UNIT Q8 09/30 2200 AC 10/02 (Porcine) SC 0520 Hydrochlorothiazide 12.5 MG DAILY 10/01 1000 DC 10/01 PO 1014 Insulin Aspart 0 TIDAC 09/30 1700 AC 10/02 SC 0803 Lisinopril 20 MG DAILY 10/01 1000 DC 10/01 PO 1015 Lorazepam 0 Q1P PRN 10/01 1830 DC IV Lorazepam 1 MG ONE ONE 10/01 1745 DC 10/01 PO 10/01 1746 1754 Lorazepam 0.5 MG ONCE ONE 10/01 1745 DC 10/01 IV 10/01 1746 1754 Lorazepam 0 Q1P PRN 10/01 1745 CAN IV Magnesium Oxide 400 MG ONE ONE 10/02 1030 DC PO 10/02 1031 Magnesium Oxide 400 MG DAILY 10/01 1543 AC 10/02 PO 1024 Metoprolol Tartrate 50 MG BID 09/30 2200 DC 10/01 PO 1014 Morphine Sulfate 2 MG Q3 PRN 10/01 1543 AC 10/01 IV 2344 Morphine Sulfate 4 MG Q3 PRN 10/01 1543 DC IV Morphine Sulfate 2 MG Q2P PRN 09/30 1900 DC 09/30 IV 1927 Morphine Sulfate 4 MG Q2P PRN 09/30 1900 DC 10/01 IV 1245 Ondansetron HCl 4 MG Q6P PRN 09/30 1900 AC IV Oxycodone HCl 5 MG Q4-6 PRN PRN 09/30 1900 AC PO Oxycodone HCl 10 MG Q4-6 PRN PRN 09/30 1900 AC PO Pantoprazole Sodium 40 MG DAILY 10/01 1000 AC 10/01 IV 1015 Phosphate 250 MG ONCE ONE 10/02 1030 DC PO 10/02 1031 Sitagliptin Phosphate 50 MG DAILY 10/01 1000 AC 10/02 PO 1024 Sodium Chloride 1,000 ML BOLUS ONE 10/01 2145 DC 10/01 IV 10/01 2244 2153 Sodium Chloride 1,000 ML .Q1H 10/01 2115 DC 10/01 IV 10/01 2214 2110 Sodium Chloride 500 ML BOLUS ONE 10/01 1515 DC 10/01 IV 10/01 1614 1516 Tiotropium [place] 1 PUF DAILY 10/01 1000 AC 10/02 INH 1024 Vital Signs & I&O Last 24 Hrs of Vitals and I&O: Vital Signs Date Time Temp Pulse Resp B/P B/P Pulse O2 O2 Flow FiO2 Mean Ox Delivery Rate 10/02 1000 70 21 119/65 10/02 0835 95 Nasal 5.0L Cannula 10/02 0800 97.5 65 17 90/60 10/02 0800 97.5 65 17 90/60 94 Nasal 5.0L Cannula 10/02 0800 94 Nasal 5.0L Cannula 10/02 0600 97.8 70 14 94/64 10/02 0400 97.8 68 16 102/57 10/02 0400 95 Nasal 4.0L Cannula 10/02 0200 98.0 76 20 82/60 10/02 0132 99 Nasal 4.0L Cannula 10/02 0000 98.0 64 14 94/00 10/02 0000 98.0 64 14 94/00 92 Nasal 4.0L Cannula 10/02 0000 92 Nasal 4.0L Cannula 10/01 2200 98.0 78 22 85/63 10/02 1999 98.0 70 20 80/42 10/01 2000 94 Nasal 2.0L Cannula 10/02 1999 92 Nasal 2.0L Cannula 10/01 1814 63 23 82/55 10/01 1705 95 Nasal 1.0L Cannula 10/01 1637 96.8 63 22 90/60 10/01 1637 96.8 63 22 90/60 95 10/01 1200 Nasal 1.0L Cannula Intake & Output 10/02 1600 10/02 0800 10/02 0000 Intake Total 902 2200 Output Total 400 85 Balance 502 2115 Intake, IV 902 2080 Intake, Oral 0 120 Number 0 Bowel Movements Output, Chest 100 40 Tube Drainage Output, Urine 300 45 Patient 189 lb Weight Impression/Plan Impression/Plan Impression/Plan: IMPRESSION: 1. There is stable position of a right thoracostomy tube with only very small residual pneumothorax. 2. There is continued stable moderate right mid and lower lung field airspace disease. A small right pleural effusion is seen. 3. There is mild left base atelectasis. UO: 500/8hr CT out: 100cc since 10pm, serosang Physical Exam: GEN: NAD CARD: s1s2 RRR PULM: +bs throughout, though coarse. dressings with bloody staining, R CTx1 to WS, no al. EXT: calves soft nt Patient is a 60-year-old female with a history of COPD, insulin-dependent diabetes, hypertension, hyperlipidemia, who is now postoperative day #1 status post right VATS wedge resection. Issues include Postoperative acute kidney injury slowly improving with fluids Significant diabetes Significant anxiety and chest discomfort post surgery Significant history of alcohol use Bilateral lower lobe infiltrate Plan Continue gentle IV fluids No indication for Lasix Aggressive spirometry Check EKG troponin Sputum culture Low threshold to start antibiotics Start gabapentin 300 mg by mouth twice a day Watch for delirium tremens patient may need 0.5 mg Ativan every 2 hours as needed May need higher dose of Ativan if needed Repeat chest x-ray tomorrow Aggressive bowel regimen [id number] nebulizer therapy Continue other medications and if patient starts wheezing then low-dose prednisone Discontinue glimepiride Sliding scale insulin before meals 3 times a day cont post thoracotomy mgt oob to chair chest tube mgt per surg IV hep lock will follow
--- NOTE | 2016-10-02 18:22 | RADIOLOGY REPORT ---
EXAMINATION: XR PORTABLE CHEST CLINICAL INFORMATION: Status post chest tube removal. Assess for pneumothorax. COMPARISON: Chest radiography, most recent earlier today. TECHNIQUE: Portable frontal view of the chest was obtained. FINDINGS: Right-sided chest tube is been removed. Tiny residual right apical pneumothorax. Persisting consolidation in the right peripheral midlung. Bibasilar opacification also demonstrated, not significantly changed from earlier exam. No pulmonary edema. Mediastinal contours are stable. Aortic catheter is chronic calcification. No acute osseous abnormalities. IMPRESSION: 1. Status post right chest tube removal. Tiny right apical pneumothorax. 2. Persistent opacification in the right peripheral midlung as well as the bilateral lung bases, unchanged compared to earlier exam.
--- NOTE | 2016-10-02 20:01 | PN- CRCU ---
Subjective HPI/Critical Care Issues: I saw the pt today on 5 l 02. not dypnec denies chest pain . she complains of chest discomfort. vitals stable . rpt chest xray tomor Objective Current Medications: Current Medications Sig/Hilton Start time Last Medication Dose Route Stop Time Status Admin Albuterol Sulfate 3 ML Q4 09/30 2200 AC 10/02 INH 1825 Albuterol Sulfate 2 PUF Q4P PRN 09/30 1645 AC INH Aspirin Buffered 81 MG DAILY 10/01 1000 AC 10/02 PO 1024 Atorvastatin Calcium 40 MG 1700 09/30 1700 AC 10/02 PO 1811 Budesonide/ 2 PUF BID 09/30 2200 AC 10/02 Formoterol Fumarate INH 1024 Dextrose/Sodium 1,000 ML .Q10H 10/02 0730 DC 10/02 Chloride IV 0803 Dextrose/Sodium 1,000 ML Q10H 10/01 2145 DC 10/02 Chloride [place] 0650 Docusate Sodium 100 MG BID 09/30 2200 AC 10/02 PO 1024 Flumazenil 0.2 MG ONCE ONE 10/01 2130 DC 10/01 IV 10/01 2131 2130 Flumazenil 1.2 MG ONCE ONE 10/01 2115 CAN IV 10/01 2116 Gabapentin 300 MG BID 10/02 1220 AC 10/02 PO 1306 Glimepiride 4 MG DAILY AC 10/01 0700 DC 10/02 PO 1024 Heparin Sodium 5,000 UNIT Q8 09/30 2200 AC 10/02 (Porcine) SC 1307 Hydrochlorothiazide 12.5 MG DAILY 10/01 1000 DC 10/01 PO 1014 Insulin Aspart 0 TIDAC 09/30 1700 AC 10/02 SC 1809 Lisinopril 20 MG DAILY 10/01 1000 DC 10/01 PO 1015 Lorazepam 0.5 MG Q2 HRS NEEDED PRN 10/02 1230 AC IV Lorazepam 0 Q1P PRN 10/01 1830 DC IV Magnesium Oxide 400 MG ONE ONE 10/02 1030 DC PO 10/02 1031 Magnesium Oxide 400 MG DAILY 10/01 1543 AC 10/02 PO 1024 Metoprolol Tartrate 50 MG BID 10/03 1000 CAN PO Metoprolol Tartrate 25 MG BID 10/03 1000 AC PO Metoprolol Tartrate 25 MG ONCE ONE 10/02 2200 AC PO 10/02 2201 Metoprolol Tartrate 50 MG BID 09/30 2200 DC 10/01 PO 1014 Morphine Sulfate 2 MG Q3 PRN 10/01 1543 AC 10/01 IV 2344 Morphine Sulfate 4 MG Q3 PRN 10/01 1543 DC IV Ondansetron HCl 4 MG Q6P PRN 09/30 1900 AC IV Oxycodone HCl 5 MG Q4-6 PRN PRN 09/30 1900 AC PO Oxycodone HCl 10 MG Q4-6 PRN PRN 09/30 1900 AC PO Oxymetazoline HCl 2 SPRAY QPM 10/02 2200 AC ADAM 10/04 2201 Pantoprazole Sodium 40 MG DAILY 10/01 1000 AC 10/02 IV 1307 Phosphate 250 MG ONCE ONE 10/02 1030 DC 10/02 PO 10/02 1031 1307 Polyethylene Glycol 17 GM DAILY 10/03 1000 AC PO Sitagliptin Phosphate 50 MG DAILY 10/01 1000 AC 10/02 PO 1024 Sodium Chloride 1,000 ML BOLUS ONE 10/015 DC 10/01 IV 10/01 2244 2153 Sodium Chloride 1,000 ML .Q1H 10/01 2115 DC 10/01 IV 10/01 2214 2110 Tiotropium [place] 1 PUF DAILY 10/01 1000 AC 10/02 INH 1024 Vital Signs & I&O Last 24 Hrs of Vitals and I&O: Vital Signs Date Time Temp Pulse Resp B/P B/P Pulse O2 O2 Flow FiO2 Mean Ox Delivery Rate 10/02 1954 99.4 100 20 122/58 10/02 1827 91 Nasal 5.0L Cannula 10/02 1600 98 Nasal 5.0L Cannula 10/02 1600 97.7 94 20 130/70 93 Nasal 5.0L Cannula 10/02 1400 90 21 140/73 10/02 1400 92 Nasal 5.0L Cannula 10/02 1200 79 21 104/64 10/02 1000 70 21 119/65 10/02 0835 95 Nasal 5.0L Cannula 10/02 0800 97.5 65 17 90/60 10/02 0800 97.5 65 17 90/60 94 Nasal 5.0L Cannula 10/02 0800 94 Nasal 5.0L Cannula 10/02 0600 97.8 70 14 94/64 10/02 0400 97.8 68 16 102/57 10/02 0400 95 Nasal 4.0L Cannula 10/02 0200 98.0 76 20 82/60 10/02 0132 99 Nasal 4.0L Cannula 10/02 0000 98.0 64 14 94/00 10/02 0000 98.0 64 14 9400 92 Nasal 4.0L Cannula 10/02 0000 92 Nasal 4.0L Cannula 10/01 2200 98.0 78 22 85/63 10/02 1999 98.0 70 20 80/42 10/01 Nasal 2.0L Cannula 10/01 Nasal 2.0L Cannula Intake & Output 10/02 1600 10/02 0800 10/02 0000 Intake Total 2827 686 8914 Output Total 1650 400 85 Balance -711 339 9799 Intake, IV 628 463 6288 Intake, Oral 660 0 120 Number 0 0 Bowel Movements Output, Chest 100 40 Tube Drainage Output, Urine 1650 300 45 Patient 189 lb Weight Exam General Appearance: well developed/nourished, anxious, comfortable, obese Head: normal appearance Neck: normal inspection, supple, full range of motion Respiratory: normal breath sounds, chest non-tender Cardiovascular: regular rate/rhythm Abdomen: normal bowel sounds, soft, non-tender Extremities: normal inspection Neurologic/Psychiatric: awake, alert, oriented x 3 Skin: intact, normal color Results Last 24 Hrs of Lab Results: Laboratory Tests 10/02/16 1334: Troponin I < 0.01 10/02/16 0405: Anion Gap 8, Estimated GFR 38 L, Glucose 193 H, Calcium 7.5 L, Phosphorus 3.2 , Magnesium 1.8, Total Bilirubin 0.4, AST 33, ALT 29, Albumin 3.2 L, CBC w Diff NO MAN DIFF REQ, RBC 3.68 L, MCV 103.5 H, MCH 34.0 H, RDW 14.9 H, MPV 9.0, Gran % 78.0 H, Lymphocytes % 12.6 L, Monocytes % 8.7, Eosinophils % 0.4, Basophils % 0.3, Absolute Granulocytes 9.5 H, Absolute Lymphocytes 1.5, Absolute Monocytes 1.1 H, Absolute Eosinophils 0.1, Absolute Basophils 0, PUBS MCHC 32.8 L 10/01/162014: Anion Gap 9, Estimated GFR 33 L, Glucose 141 H, Calcium 8.3 L, Phosphorus 4.9 H, Magnesium 1.7, Total Bilirubin 0.5, AST 35, ALT 32, Albumin 3.6, CBC w Diff NO MAN DIFF REQ, RBC 3.83 L, MCV 103.0 H, MCH 33.5 H, RDW 14.8 H, MPV 8.4, Gran % 80.9 H, Lymphocytes % 11.5 L, Monocytes % 7.1, Eosinophils % 0.4, Basophils % 0.1, Absolute Granulocytes 11.6 H, Absolute Lymphocytes 1.7, Absolute Monocytes 1.0 H, Absolute Eosinophils 0.1, Absolute Basophils 0, PUBS MCHC 32.5 L Diagnostic Data CXR Findings: . Status post right chest tube removal. Tiny right apical pneumothorax. 2. Persistent opacification in the right peripheral midlung as well as the bilateral lung bases, unchanged compared to earlier exam. Impression/Plan Impression/Plan Impression/Plan: 60 year old woman with past medical history of NIDDM, HTN, HLD, and COPD. 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 PLAN * Follow-up postthoracotomy respiratory protocol * Adequate pain management * Chest tube romoved * Follow-up RUL pathology * Continue GI and DVT prophylaxis * Full code * Start gabapentin 300 mg by mouth twice a day * Check EKG troponin * Aggressive spirometry * Sputum culture * 0.5 mg Ativan every 2 hours as needed * Repeat chest x-ray tomorrow
--- NOTE | 2016-10-02 20:27 | NUR ---
SEEN BY RT, FOUND PT O2 SAT IN THE 70- 80'S PT DENIES DYSPNEA AT THIS TIME NASAL 02 INCREASED TO 7L W/O INCREASE OF O2 SAT PLACED ON PRB AT 60%. FORREST SANCHEZ CALLED UP TO SEE PT CXR DONE. O2 SAT MOW 94% BS DIMINISHED ON R MID AND LOWER LOBES. DRSG D/I. PT DENIES PAIN, COOPERATIVE WITH CARE TAKING BREATHING TREATMENTS WELL.
--- NOTE | 2016-10-02 20:31 | RADIOLOGY REPORT ---
EXAMINATION: XR PORTABLE CHEST CLINICAL INFORMATION: Status post right upper lobe wedge resection. Chest pain COMPARISON: Chest x-ray from earlier the same day TECHNIQUE: Portable AP view of the chest was obtained. FINDINGS: Heart size remains mildly enlarged. Pulmonary vascularity is unremarkable. The lungs are hypoexpanded with bibasilar atelectasis unchanged.. There is persistent focal opacity in the right lateral hemithorax which could represent some focal consolidation in the lateral right lung, unchanged. Right pleural effusion is unchanged. The tiny right apical pneumothorax seen on the recent prior chest x-ray is not identified at this time. There is no new finding IMPRESSION: Hypoexpanded lungs with bibasilar atelectasis. Postsurgical changes in the right hemithorax with focal opacity in the periphery of the right lung possibly representing some consolidation, unchanged. Right apical pneumothorax seen on prior study is no longer identified..
--- NOTE | 2016-10-02 21:00 | Event Note ---
Event Note Event Note: Patient desaturated to the low 80s, she felt short of breath. I evaluated the patient, she has crackles and congestion noted in the right lung, she has breath sounds at the apex. Patient evaluated by respiratory as well. She was placed on nonrebreather and her O2 saturation increased to the low 90s. Patient symptomatically felt better. A stat portable chest x-ray was ordered. I reevaluated the patient after the x-ray and she is feeling better, O2 saturation 96% on nonrebreather. Chest x-ray shows: IMPRESSION: Hypoexpanded lungs with bibasilar atelectasis. Postsurgical changes in the right hemithorax with focal opacity in the periphery of the right lung possibly representing some consolidation, unchanged. Right apical pneumothorax seen on prior study is no longer identified.. Discussed with Dr. Sierra. We'll start antibiotics.
[2016-10-03] VITALS (11 sets, daily range): BP systolic 102–147; BP diastolic 54–72
[2016-10-03 04:46] LABS: ABSOLUTE BASOPHIL COUNT 0 /CUMM (0.0-0.2); ABSOLUTE EOSINOPHIL COUNT 0.1 /CUMM (0.0-0.7); ABSOLUTE GRANULOCYTE CT 8.5 /CUMM (1.4-6.5); ABSOLUTE LYMPH COUNT 1.2 /CUMM (1.2-3.4); ABSOLUTE MONOCYTE COUNT 0.7 /CUMM (0.10-0.60); BASOPHIL % 0.4 % (0.0-2.0); EOSINOPHIL % 0.8 % (0-5); GRANULOCYTE % 80.4 % (42.2-75.2); HEMATOCRIT 37.8 % (37-47); MEAN CORPUSCULAR HGB 33.5 PG (27.0-31.0); MEAN CORPUSCULAR HGB CONC 32.6 G/DL (33.0-37.0); MEAN CORPUSCULAR VOLUME 102.5 FL (81.0-99.0); MEAN PLATELET VOLUME 9.2 FL (7.4-10.4); PLATELET COUNT 169 /CUMM (130-400); RBC DISTRIBUTION WIDTH 14.7 % (11.5-14.5); RED BLOOD CELL CT 3.68 /CUMM (4.20-5.40); WHITE BLOOD CELL COUNT 10.6 /CUMM (4.8-10.8)
--- NOTE | 2016-10-03 05:58 | PN- Thoracic Surgery ---
Subjective Subjective: Patient being weaned off oxygen, currently on 40% Ventimask, she maintained her oxygen saturation throughout the night in the mid 90s. She does not feel short of breath at this time, she has no chest pain. She had a mild low-grade temperature overnight Objective Vital Signs and I&Os Vital Signs Date Time Temp Pulse Resp B/P B/P Pulse O2 O2 Flow FiO2 Mean Ox Delivery Rate 10/03 0540 99.3 77 18 118/61 10/03 0400 99.3 93 20 117/61 10/03 0400 97 Venti Mask 55% 10/03 0200 99.8 93 18 108/59 10/03 0000 99.8 104 18 108/69 10/03 0000 98 Part 60% ReBreather 10/03 0000 100.8 103 18 123/59 98 Part 60% ReBreather 10/02 2159 99.4 104 16 133/67 10/02 2141 107 133/69 10/02 1955 99.4 100 20 122/58 10/02 1955 94 Part 60% ReBreather 10/02 1940 83 Nasal 7.0L Cannula 10/02 1827 91 Nasal 5.0L Cannula 10/02 1600 98 Nasal 5.0L Cannula 10/02 1600 97.7 94 20 130/70 93 Nasal 5.0L Cannula 10/02 1400 90 21 140/73 / 1400 92 Nasal 5.0L Cannula 10/02 1200 79 21 104/64 /15 1000 70 21 119/65 10/02 0835 95 Nasal 5.0L Cannula 10/02 0800 97.5 65 17 90/60 /15 0800 97.5 65 17 90/60 94 Nasal 5.0L Cannula 10/02 0800 94 Nasal 5.0L Cannula 10/02 0600 97.8 70 14 94/64 Intake & Output 16 0800 /16 0000 15 1600 /15 0800 /15 0000 14 1600 Intake Total 50 840 7328 953 5756 1440 Output Total 650 1300 1650 400 85 310 Balance -600 -460 -799 583 1872 1130 Intake, IV 250 047 166 1916 600 Intake, Oral 50 590 660 0 120 840 Number 0 0 Bowel Movements Output, Chest 100 40 10 Tube Drainage Output, Urine 650 1300 1650 300 45 300 Patient 189 lb Weight Physical Exam: Well-developed well-nourished no apparent distress. Sitting in the chair, no respiratory distress, 40% Ventimask noted with O2 sat 96% HEENT: Atraumatic, extraocular motion trachea is midline intact Neck: Supple, no lymphadenopathy Respiratory: Crackles noted throughout right lung, mildly diminished compared to the left side. Left lung is clear. Chest clean dry and intact Heart: Regular rate and rhythm Extremities: No edema, no calf pain Neuro: Alert and oriented x3 Psych: Mood affect normal, normal memory normal judgment. Skin: Warm and dry, no rash on exposed skin Results Last 48 Hours of Labs: Laboratory Tests 10/03 10/02 0345 1334 Chemistry Sodium (137 - 145 mmol/L) 141 Potassium (3.5 - 5.1 mmol/L) 4.6 Chloride (98 - 107 mmol/L) 105 Carbon Dioxide (22 - 30 mmol/L) 30 Anion Gap (5 - 16) 6 BUN (7 - 17 mg/dL) 17 Creatinine (0.5 - 1.0 mg/dL) 0.6 Estimated GFR (>60 ml/min) > 60 Glucose (65 - 99 mg/dL) 200 H Calcium (8.4 - 10.2 mg/dL) 8.4 Phosphorus (2.5 - 4.5 mg/dL) 1.9 L Magnesium (1.6 - 2.3 mg/dL) 2.2 Total Bilirubin (0.2 - 1.3 mg/dL) 0.5 AST (14 - 36 U/L) 24 ALT (9 - 52 U/L) 26 Troponin I (< 0.11 ng/ml) < 0.01 Albumin (3.5 - 5.0 g/dL) 3.2 L Hematology CBC w Diff NO MAN DIFF REQ WBC (4.8 - 10.8 /CUMM) 10.6 RBC (4.20 - 5.40 /CUMM) 3.68 L Hgb (12.0 - 16.0 G/DL) 12.3 Hct (37 - 47 %) 37.8 MCV (81.0 - 99.0 FL) 102.5 H MCH (27.0 - 31.0 PG) 33.5 H RDW (11.5 - 14.5 %) 14.7 H Plt Count (130 - 400 /CUMM) 169 MPV (7.4 - 10.4 FL) 9.2 Gran % (42.2 - 75.2 %) 80.4 H Lymphocytes % (20.5 - 51.1 %) 11.7 L Monocytes % (1.7 - 9.3 %) 6.7 Eosinophils % (0 - 5 %) 0.8 Basophils % (0.0 - 2.0 %) 0.4 Absolute Granulocytes (1.4 - 6.5 /CUMM) 8.5 H Absolute Lymphocytes (1.2 - 3.4 /CUMM) 1.2 Absolute Monocytes (0.10 - 0.60 /CUMM) 0.7 H Absolute Eosinophils (0.0 - 0.7 /CUMM) 0.1 Absolute Basophils (0.0 - 0.2 /CUMM) 0 PUBS MCHC (33.0 - 37.0 G/DL) 32.6 L 10/02 Chemistry Sodium (137 - 145 mmol/L) 133 L 132 L Potassium (3.5 - 5.1 mmol/L) 4.1 4.4 Chloride (98 - 107 mmol/L) 101 96 L Carbon Dioxide (22 - 30 mmol/L) 24 26 Anion Gap (5 - 16) 8 9 BUN (7 - 17 mg/dL) 39 H 38 H Creatinine (0.5 - 1.0 mg/dL) 1.4 H 1.6 H Estimated GFR (>60 ml/min) 38 L 33 L Glucose (65 - 99 mg/dL) 193 H 141 H Calcium (8.4 - 10.2 mg/dL) 7.5 L 8.3 L Phosphorus (2.5 - 4.5 mg/dL) 3.2 4.9 H Magnesium (1.6 - 2.3 mg/dL) 1.8 1.7 Total Bilirubin (0.2 - 1.3 mg/dL) 0.4 0.5 AST (14 - 36 U/L) 33 35 ALT (9 - 52 U/L) 29 32 Albumin (3.5 - 5.0 g/dL) 3.2 L 3.6 Hematology CBC w Diff NO MAN DIFF REQ NO MAN DIFF REQ WBC (4.8 - 10.8 /CUMM) 12.2 H 14.4 H RBC (4.20 - 5.40 /CUMM) 3.68 L 3.83 L Hgb (12.0 - 16.0 G/DL) 12.5 12.8 Hct (37 - 47 %) 38.1 39.4 MCV (81.0 - 99.0 FL) 103.5 H 103.0 H MCH (27.0 - 31.0 PG) 34.0 H 33.5 H RDW (11.5 - 14.5 %) 14.9 H 14.8 H Plt Count (130 - 400 /CUMM) 153 161 MPV (7.4 - 10.4 FL) 9.0 8.4 Gran % (42.2 - 75.2 %) 78.0 H 80.9 H Lymphocytes % (20.5 - 51.1 %) 12.6 L 11.5 L Monocytes % (1.7 - 9.3 %) 8.7 7.1 Eosinophils % (0 - 5 %) 0.4 0.4 Basophils % (0.0 - 2.0 %) 0.3 0.1 Absolute Granulocytes (1.4 - 6.5 /CUMM) 9.5 H 11.6 H Absolute Lymphocytes (1.2 - 3.4 /CUMM) 1.5 1.7 Absolute Monocytes (0.10 - 0.60 /CUMM) 1.1 H 1.0 H Absolute Eosinophils (0.0 - 0.7 /CUMM) 0.1 0.1 Absolute Basophils (0.0 - 0.2 /CUMM) 0 0 PUBS MCHC (33.0 - 37.0 G/DL) 32.8 L 32.5 L 07/14 0845 Chemistry Potassium (3.5 - 5.1 mmol/L) 4.8 Assessment/Plan Assessment/Plan A: POD 3 sp R vats, wedge rsxn P: Concern for ventilatory assisted/nosocomial acquired pneumonia. Placed on Vanco and Fortaz last evening. Continue antibiotics. Await pulmonary input. She had low-grade temps overnight, white blood cell count is decreasing blood cultures pending awaiting sputum culture specimen Total respiratory care Wean off O2 Chest tube removed yesterday. Follow chest x-ray this morning Hypotension and acute kidney injury resolved (continue on metoprolol 25 mg twice a day and will slowly add on her usual antihypertensive medication as patient's blood pressure increases) monitor ciwa, Ativan when necessary Pain medication as needed Core Measures/Miscellaneous Venous Thromboembolism VTE Risk Factors: Age > 40, Cancer/chemo/oth therapy, Smoking, Surgery VTE Contraindications: No Contraindications VTE Diagnosis: No VTE Type: NONE VTE Confirmed by (Test): NONE Beta Stephanie Is Beta Stephanie a Home Med? Yes If Yes, Was This Ordered Today? Yes Antibiotics Is Patient on Antibiotics? No
--- NOTE | 2016-10-03 08:14 | PN- Resident CRCU ---
RAHUL MCDUFFIE,RONNIE 10/03/16 0813: Subjective HPI/CRCU Issues: Patient seen and examined. She is seen sitting upright in her chair maintained on supplemental oxygen via nasal cannula. She appears to be in no acute distress. She reports feeling well and is asking "when can I get out of this place?". She states that she is breathing comfortably on the current supplemental oxygen regimen, but admits that she does not use oxygen at home. The pain in the surgical site is well controlled. She admits that she has not had a bowel movement while in hospital, but is not concerned about it. Otherwise she denies any blurred/double vision, lightheadedness/dizziness, headache, fever, chills, substernal chest pain/discomfort, worsening shortness of breath, nausea, vomiting, diarrhea. Objective Vital Signs & I&O Last 8 Hrs of Vitals and I&O: NSR/ST on telemetry HR 76-110 BP Sys 109-120 BP Deneen 52-65 O2 93-97% on 5.0L via NC RR 16-33 Exam General Appearance: well developed/nourished, no apparent distress, alert, awake Other Physical Findings: General- well developed, well nourished obese elderly woman in no acute distress HEENT-NCAT, PERRL, EOMI, anicteric sclera, nasal cannula in place Cardio/Chest- S1, S2 w/o m/g/r; RRR, sterile surgical gauze in place on right chest wall with scant amount of serosanguinous drainage Lung-Mild rhonchi without crackles Abdomen-Soft, nontender, mildly distended, bowel sounds intact Neuro-Awake and alert, CN II-XII grossly intact Ext-normal pulses, no cyanosis/clubbing/edema Current Medications: Current Medications Sig/Hilton Start time Last Medication Dose Route Stop Time Status Admin Albuterol Sulfate 3 ML Q4 09/30 2200 AC 10/02 INH 213 Albuterol Sulfate 2 PUF Q4P PRN 09/30 1645 AC INH Aspirin Buffered 81 MG DAILY 10/01 1000 AC 10/02 PO 1024 Atorvastatin Calcium 40 MG 1700 09/30 1700 AC 10/02 PO 1811 Budesonide/ 2 PUF BID 09/30 220 AC 10/02 Formoterol Fumarate INH 2139 Ceftazidime 1,000 MG Q12 10/02 2200 AC 10/02 IV 2231 Dextrose/Sodium 1,000 ML .Q10H 10/02 0730 DC 10/02 Chloride IV 0803 Docusate Sodium 100 MG BID 09/30 2200 AC 10/02 PO 2140 Gabapentin 300 MG BID 10/02 1220 AC 10/02 PO 2140 Glimepiride 4 MG DAILY AC 10/01 0700 DC 10/02 PO 1024 Heparin Sodium 5,000 UNIT Q8 09/30 2200 AC 10/03 (Porcine) SC 0518 Insulin Aspart 0 TIDAC 09/30 1700 AC 10/03 SC 0820 Lorazepam 0.5 MG Q2 HRS NEEDED PRN 10/02 1230 AC IV Magnesium Oxide 400 MG ONE ONE 10/02 1030 DC PO 10/02 1031 Magnesium Oxide 400 MG DAILY 10/01 1543 AC 10/02 PO 1024 Metoprolol Tartrate 50 MG BID 10/03 1000 CAN PO Metoprolol Tartrate 25 MG BID 10/03 1000 AC PO Metoprolol Tartrate 25 MG ONCE ONE 10/02 2200 DC 10/02 PO 10/02 2201 2141 Morphine Sulfate 2 MG Q3 PRN 10/01 1543 AC 10/01 IV 2344 Ondansetron HCl 4 MG Q6P PRN 09/30 1900 AC IV Oxycodone HCl 5 MG Q4-6 PRN PRN 09/30 1900 AC PO Oxycodone HCl 10 MG Q4-6 PRN PRN 09/30 1900 AC PO Oxymetazoline HCl 2 SPRAY QPM 10/02 2200 AC 10/02 ADAM 10/04 220 202 Pantoprazole Sodium 40 MG .STK-MED ONE 10/02 1304 DC IV 10/02 1305 Pantoprazole Sodium 40 MG DAILY 10/01 1000 AC 10/02 IV 1307 Phosphate 250 MG ONCE ONE 10/02 1030 DC 10/02 PO 10/02 1031 1307 Polyethylene Glycol 17 GM DAILY 10/03 1000 AC PO Sitagliptin Phosphate 50 MG DAILY 10/01 1000 AC 10/02 PO 1024 Tiotropium [place] 1 PUF DAILY 10/01 1000 AC 10/02 INH 1024 Vancomycin HCl 1,250 MG DAILY 10/02 2115 AC 10/02 Sodium Chloride 250 ML IV 2234 Impression/Plan Impression/Problem List Impression: 60 year old woman with past medical history of COPD, IDDM, hypertension, hyperlipidemia admitted for right upper lobe wedge resction. #S/P Right VATS wedge resection #Acute Kidney Injury #History of COPD #Hypophosphatemia #Bilateral lower lobe infilatrate #Hypotension, resolved #Hypertension Patient is s/p right VATS RUL wedge resection and monitored in the ICU for closer observation. Chest tube is removed and surgical incision site appears to be well healing. Patient remains afebrile without leukocytosis while on intravenous antibiotics. Monitor for further respiratory distress, hypotension. Encourage ambulation, out of bed to chair. Monitor for constipation. Restart blood pressure medications as tolerated. Creatinine improved today. -ICU -POD #4 -Post-thoracotomy care per protocol -Incentive spirometry -Supplemental oxygen, goal > 92%, taper as tolerated -TRC -OOB to chair -Vancomycin 1.25g IV Daily -Ceftazidime 1g IV Q12H -Follow up cultures & sensitivites -Pain control per surgical team -Replete electrolytes as needed, consider nutrition consult -Bowel Regimen with Miralax/Senna/Colace -DVT with subcutaneous heparin -FULL CODE #Insulin-dependent diabetes mellitus -Accuchecks with premeal Novolog TIDAC/HS -HOLD ORAL HYPOGLYCEMICS -Diabetic Diet #History of EtOH Dependence Patient admits to drinking three vodka drinks per day. -CIWA -Ativan per CIWA #Hyperlipidemia-Atorvastatin 40mg PO Daily Problem List: 1. S/P thoracotomy Pain Ratin Tomorrow's Labs & Rationales: CBC ICU CXR Plan DVT/Prophylaxis: mechanical, pharmacological FRANCIS MCDUFFIE,[facility] 10/03/16 1023: Attending MD Review Statement Attending Sign Off Attending Cosign Statement: I have: examined this patient, reviewed [facility] EMR data, personally reviewd images, discussd w/resident/PA/MID LEVEL CLINICIAN, discussed mgmt plan w/elda, discussed mgmt plan w/CM, discussed mgmt plan w/pt, agreed w/resident/PA/MID LEVEL CLINICIAN, amended to note. Other Findings: Patient is a 60-year-old female with a history of COPD, insulin-dependent diabetes, hypertension, hyperlipidemia, who is now postoperative status post right VATS wedge resection. Issues include REsolved AURELIO Significant diabetes Significant anxiety and chest discomfort post surgery improving Significant history of alcohol use Bilateral lower lobe infiltrate now better less likely this is a bacterial pna REC COnt all meds DC fluids If ok can dc abx will follow
--- NOTE | 2016-10-03 08:57 | RADIOLOGY REPORT ---
EXAMINATION: XR PORTABLE CHEST CLINICAL INFORMATION: Wedge resection right upper lobe COMPARISON: Multiple prior studies most recently 10/02/2016 TECHNIQUE: Portable portable AP 85 degrees upright view of the chest was obtained. FINDINGS: Postoperative changes in the right hemithorax redemonstrated. There is slight improvement in the extent of overall consolidation in the mid to lower right lung. There is improving aeration in the left lung with persistent patchy opacity in the left retrocardiac region. No obvious pneumothorax. The cardiac silhouette remains enlarged. A small right pleural effusion persists. IMPRESSION: Postoperative changes. Improving opacity in the right lung. Improving edema. Residual left retrocardiac opacity and small pleural effusion on the right.
--- NOTE | 2016-10-03 14:03 | NUR ---
AMBULATED PATIENT WHILE ON 5L NC, AMBULATED IN HALLWAYS APPX 150 STEPS, STOPPED TO REST X3 D/T SOB, MAINTAIN O2 SAT 93%,
--- NOTE | 2016-10-03 16:00 | NUR ---
ASSUMED CARE OF PATIENT. PATIENT ALERT AND ORIENTED SITTING UP IN RECLINER. IN NO APPARENT DISTRESS USING OXYGEN AT 5L/NC WITH SATS OF 94%. LUNGS CLEAR, MONITOR SR WITH 1 DEGREE AV BLOCK BELLY SOFT NON TENDER WITH GOOD BOWEL SOUNDS. VOIDING ON BEDSIDE COMMODE WITH ASSIST OF ONE. SKIN INTACT, DRESSING TO R BACK DRY AND INTACT.
[2016-10-04] VITALS (7 sets, daily range): BP systolic 110–150; BP diastolic 58–72
--- NOTE | 2016-10-04 00:51 | NUR ---
PT AWAKE,ALERT AND ORIENTED. DENIES PAIN AT THIS TIME. ASSISTED TO THE COMMODE, THEN TO A RECLINER. SATURATION 97% ON 5L O2, LUNGS SOUND CLEAR. NSR 80', MANUAL BP 150/70. ABDOMEN SOFT, NORMOACTIVE BS. VOIDED TO CLEAR YELLOW URINE. RIGHT BACK DRESSING DRY AND INTACT.
--- NOTE | 2016-10-04 05:54 | PN- Thoracic Surgery ---
Subjective Subjective: Patient started the day yesterday with an episode of hypoxia and low-grade temp overnight. It was determined that there was a developing right-sided pneumonia and she was therefore started on IV antibiotics. Throughout the day, with deep breathing, incentive spirometer, TRC's, and ambulation, patient's respiratory status improved significantly and she started to feel much better. She is eating a little better. No bowel movement as of yet. Remains on 5 L O2 via nasal cannula. Admits to feeling a little tired this morning. Otherwise denies shortness of breath. Objective Vital Signs and I&Os Vital Signs Date Time Temp Pulse Resp B/P B/P Pulse O2 O2 Flow FiO2 Mean Ox Delivery Rate 10/04 0400 70 18 123/66 10/04 0400 97 Nasal 5.0L Cannula 10/04 0200 77 20 110/63 10/04 0000 96.7 86 18 150/70 10/04 0000 97 Nasal 5.0L Cannula 10/04 0000 96.7 86 18 150/70 97 Nasal 5.0L Cannula 10/03 2200 99.1 90 22 118/54 10/03 2128 93 22 115/67 10/03 2032 94 Nasal 4.0L Cannula 10/03 2000 99.1 92 22 124/60 16 2000 93 Nasal 5.0L Cannula 10/03 1600 97.6 81 22 118/64 10/03 1600 93 Nasal 5.0L Cannula 10/03 1400 84 22 147/72 16 1200 97.8 84 24 102/60 /16 1200 94 Nasal 5.0L Cannula 10/03 1016 94 Nasal 4.0L Cannula 10/03 1000 81 24 110/61 10/03 0954 86 126/71 16 0800 97.3 84 81 104/58 16 0800 93 Nasal 5.0L Cannula 10/03 0800 97.3 81 21 104/58 93 Nasal 5.0L Cannula Intake & Output 10/04 0800 /17 0000 16 1600 16 0800 10/03 0000 10/02 1600 Intake Total 860 980 50 840 1290 Output Total 275 962 867 5916 1650 Balance 585 180 -600 -460 -360 Intake, IV 20 320 250 630 Intake, Oral 840 660 50 590 660 Number 0 0 Bowel Movements Output, Urine 275 [id number] 1650 Patient 189 lb Weight Physical Exam: Gen.: Patient is awake and alert. No acute distress. sHe is sitting up in the chair this morning. Cardiac: Regular Pulmonary: Sound much better. Still some rhonchi, but improved. Surgical dressings are clean and intact. Abdomen: Soft and moderately distended. Nontender. Positive bowel sounds. Extremities: No significant edema or calf tenderness appreciated. Assessment/Plan Assessment/Plan Patient is a 60-year-old female with a history of COPD, diabetes, hypertension, hyperlipidemia, no clear use who is now postoperative day #4 status post right VATS wedge resection. Her chest tube was removed on postop day #2. She developed a right-sided pneumonia, which seems to be improving. He remains relatively stable on 5 L of O2 at this time. Plan: -Follow-up chest x-ray this morning. -Continue IV Fortaz and Vanco for pneumonia for now. If patient continues to improve clinically, we will consider discontinuation of this. -Continue to encourage by mouth intake. -Increased bowel regimen. -Subcutaneous heparin and Alps for DVT prophylaxis. -Continue to encourage ambulation, incentive spirometer, TRC's, pulmonary toilet. -Appreciate pulmonary input. -Lisinopril and has HCTZ is still being held due to episodes of hypotension. Consider replacing them today. Will discuss with [facility] care [facility]. -Will discuss with attending. Core Measures/Miscellaneous Venous Thromboembolism VTE Risk Factors: Age > 40, Cancer/chemo/oth therapy, Smoking, Surgery VTE Contraindications: No Contraindications VTE Diagnosis: No VTE Type: NONE VTE Confirmed by (Test): NONE Beta Stephanie Is Beta Stephanie a Home Med? Yes If Yes, Was This Ordered Today? Yes Antibiotics Is Patient on Antibiotics? No
[2016-10-04 06:32] LABS: ABSOLUTE BASOPHIL COUNT 0 /CUMM (0.0-0.2); ABSOLUTE EOSINOPHIL COUNT 0.3 /CUMM (0.0-0.7); ABSOLUTE GRANULOCYTE CT 7.9 /CUMM (1.4-6.5); ABSOLUTE LYMPH COUNT 1.3 /CUMM (1.2-3.4); ABSOLUTE MONOCYTE COUNT 0.8 /CUMM (0.10-0.60); BASOPHIL % 0.3 % (0.0-2.0); EOSINOPHIL % 3.2 % (0-5); HEMATOCRIT 37.3 % (37-47); MEAN CORPUSCULAR HGB 33.5 PG (27.0-31.0); MEAN CORPUSCULAR HGB CONC 32.6 G/DL (33.0-37.0); MEAN CORPUSCULAR VOLUME 102.7 FL (81.0-99.0); MEAN PLATELET VOLUME 9.2 FL (7.4-10.4); PLATELET COUNT 179 /CUMM (130-400); RBC DISTRIBUTION WIDTH 14.6 % (11.5-14.5); RED BLOOD CELL CT 3.64 /CUMM (4.20-5.40); WHITE BLOOD CELL COUNT 10.4 /CUMM (4.8-10.8)
--- NOTE | 2016-10-04 07:24 | PN- CRCU ---
FRANKLYN MCDUFFIE,[facility] 10/04/16 0724: Subjective HPI/Critical Care Issues: I saw the pt today at bedside. She is comfortable sitting in chair on 5 L nasal o2. She slept well overnight, and denies chest pain, dyspnea, fever. She however, complaints of itching were the chest tube was removed. no redness or swelling around the same area. Objective Current Medications: Current Medications Sig/Hilton Start time Last Medication Dose Route Stop Time Status Admin Albuterol Sulfate 3 ML EVERY 4 HRS/AWAKE 10/03 1200 AC 10/04 INH 0825 Albuterol Sulfate 3 ML Q4 09/30 2200 DC 10/03 INH 1011 Albuterol Sulfate 2 PUF Q4P PRN 09/30 1645 AC INH Aspirin Buffered 81 MG DAILY 10/01 1000 AC 10/03 PO 0953 Atorvastatin Calcium 40 MG 1700 09/30 1700 AC 10/03 PO 1619 Bisacodyl 10 MG ONCE PRN 10/04 0615 AC OK 10/04 1215 Budesonide/ 2 PUF BID 09/30 2200 AC 10/03 Formoterol Fumarate INH 2128 Ceftazidime 1,000 MG Q12 10/03 2200 AC 10/03 IV 2129 Ceftazidime 1,000 MG Q12 10/02 2200 DC 10/03 IV 10/03 2100 0951 Docusate Sodium 100 MG BID 09/30 2200 AC 10/03 PO 2127 Gabapentin 300 MG BID 10/02 1220 AC 10/03 PO 2127 Heparin Sodium 5,000 UNIT Q8 09/30 2200 AC 10/04 (Porcine) SC 0616 Insulin Aspart 0 TIDAC 09/30 1700 AC 10/04 SC 0838 Lorazepam 0.5 MG Q2 HRS NEEDED PRN 10/02 1230 AC IV Magnesium Hydroxide 30 ML ONE ONE 10/04 0615 DC 10/04 PO 10/04 0616 0624 Magnesium Oxide 400 MG DAILY 10/01 1543 AC 10/03 PO 0952 Metoprolol Tartrate 25 MG BID 10/03 1000 AC 10/03 PO 2128 Morphine Sulfate 2 MG Q3 PRN 10/01 1543 AC 10/01 IV 2344 Ondansetron HCl 4 MG Q6P PRN 09/30 1900 AC IV Oxycodone HCl 5 MG Q4-6 PRN PRN 09/30 1900 AC PO Oxycodone HCl 10 MG Q4-6 PRN PRN 09/30 1900 AC PO Oxymetazoline HCl 2 SPRAY QPM 10/02 2200 AC 10/03 ADAM 10/04 Pantoprazole Sodium 40 MG DAILY 10/01 1000 AC 10/03 IV 0952 Phosphate 250 MG PC AND AT BEDTIME 10/03 0900 AC 10/03 PO 2127 Polyethylene Glycol 17 GM DAILY 10/03 1000 AC 10/03 PO 0952 Sitagliptin Phosphate 50 MG DAILY 10/01 1000 AC 10/03 PO 0952 Tiotropium [place] 1 PUF DAILY 10/01 1000 AC 10/03 INH 0949 Vancomycin HCl 1,250 MG DAILY 10/04 1000 AC Sodium Chloride 250 ML IV Vancomycin HCl 1,250 MG DAILY 10/02 211 DC 10/03 Sodium Chloride 250 ML IV 1005 Vital Signs & I&O Last 24 Hrs of Vitals and I&O: Vital Signs Date Time Temp Pulse Resp B/P B/P Pulse O2 O2 Flow FiO2 Mean Ox Delivery Rate 10/04 0913 94 Nasal 4.0L Cannula 10/04 0600 77 20 117/67 10/04 0400 70 18 123/66 10/04 0400 97 Nasal 5.0L Cannula 10/04 0200 77 20 110/63 10/04 0000 96.7 86 18 150/70 10/04 0000 97 Nasal 5.0L Cannula 10/04 0000 96.7 86 18 150/70 97 Nasal 5.0L Cannula 10/03 2200 99.1 90 22 118/54 10/03 2128 93 22 115/67 10/032 94 Nasal 4.0L Cannula 10/04 1999 99.1 92 22 124/60 10/04 1999 93 Nasal 5.0L Cannula 10/03 1600 97.6 81 22 118/64 10/03 1600 93 Nasal 5.0L Cannula 10/03 1400 84 22 147/72 10/03 1200 97.8 84 24 102/60 10/03 1200 94 Nasal 5.0L Cannula 10/03 1016 94 Nasal 4.0L Cannula 10/03 1000 81 24 110/61 10/03 0954 86 126/71 Intake & Output 10/04 1600 10/04 0800 10/04 0000 Intake Total 100 860 Output Total 600 275 Balance -500 585 Intake, IV 20 Intake, Oral 100 840 Output, Urine 600 275 VITALS - OK-76, RR-20, BP-117/67 Impression/Plan Impression/Plan Impression/Plan: 60 year old woman with past medical history of IDDM, HTN, HLD, and COPD, S/P Right thoracoscopy with wedge resection of right upper lobe lung nodule ( 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 VITALS - OK-76, RR-20, BP-117/67 PLAN * Follow-up postthoracotomy respiratory protocol-ambulation, incentive spirometer, TRC's, pulmonary toilet. * Adequate pain management * Follow-up RUL pathology * Continue GI and DVT prophylaxis * Full code * continue gabapentin 300 mg * Aggressive spirometry * Sputum culture f/p * replete electrolytes as needed * can be off antibiotics -no sign of pneumonia. chest x ray shows Improving opacity in the right lung. Improving edema. Residual left retrocardiac opacity and small pleural effusion on the right. wbc trending down. * Lisinopril and has HCTZ is still being held due to episodes of hypotension * Fingerstick glucose. FLUIDS -none ELECTROLYTES - na-143, k-4.7, po4-2.3, mg-2. NUTRITION- Heart healthy diet PROPHYLAXIS- GI-,protonix, DVT-heparin CODE-full code DISPOSITION- MIKE RANDALL MD 10/04/16 0949: Impression/Plan Impression/Plan Recommendations: Mike Berrios M.D. have examined this patient, reviewed available EMR data, personally reviewed images, discussed with resident/PA/FOUR H AGENT, discussed management plan with housestaff and nursing staff, discussed managment plan all of healthcare providers, discussed management plan with patient and/or family, agreed with resident/PA/FOUR H AGENT. The past history and parts of the chart have been autopopulated. Impression 60-year-old woman with a right upper lobe mass status post resection Plan Postthoracotomy care Incentive spirometry TRC/nebs DVT prophylaxis at all times Monitor ins and outs Monitor I's Postoperative management per cardiothoracic surgery TTS 35 min
--- NOTE | 2016-10-04 13:48 | NUR ---
PT IS AWAKE AND ORIENTED. OOB TO CHAIR FOR MOST OF THE DAY. AMBULATES IN [place] ON O2 5L N/C AND NURSE SUPERVISION. TOLERATING WELL. WAITING FOR [facility] BED.HER DRESSINGS ARE INTACT AND HAVE BEEN CHANGED. V/S ARE STABLE.
[2016-10-05] VITALS: BP 124/50
--- NOTE | 2016-10-05 01:04 | NUR ---
SLEEPY, EASILY AROUSABLE. DENIES PAIN. SATURATION 93% ON 2L O2, LUNGS SOUND CLEAR. NON PRODUCTIVE COUGH HEARD. DRESSING TO RIGHT BACK DRY AND INTACT
[2016-10-05 06:16] LABS: ABSOLUTE BASOPHIL COUNT 0 /CUMM (0.0-0.2); ABSOLUTE EOSINOPHIL COUNT 0.4 /CUMM (0.0-0.7); ABSOLUTE GRANULOCYTE CT 8.5 /CUMM (1.4-6.5); ABSOLUTE LYMPH COUNT 1.3 /CUMM (1.2-3.4); ABSOLUTE MONOCYTE COUNT 0.7 /CUMM (0.10-0.60); BASOPHIL % 0.1 % (0.0-2.0); EOSINOPHIL % 3.3 % (0-5); GRANULOCYTE % 77.6 % (42.2-75.2); HEMATOCRIT 37.7 % (37-47); MEAN CORPUSCULAR HGB 33.5 PG (27.0-31.0); MEAN CORPUSCULAR HGB CONC 32.8 G/DL (33.0-37.0); MEAN CORPUSCULAR VOLUME 102.3 FL (81.0-99.0); MEAN PLATELET VOLUME 8.9 FL (7.4-10.4); PLATELET COUNT 176 /CUMM (130-400); RBC DISTRIBUTION WIDTH 14.5 % (11.5-14.5); RED BLOOD CELL CT 3.69 /CUMM (4.20-5.40)
--- NOTE | 2016-10-05 06:22 | PN- CRCU ---
FRANKLYN MCDUFFIE,[facility] 10/05/16 0621: Subjective HPI/Critical Care Issues: I saw the pt today at bedside. She is comfortable sitting in chair on 2 L nasal o2. She slept well overnight, and denies headache, vomitting, chest pain, dyspnea, fever. no overnight events. Objective Current Medications: Current Medications Sig/Hilton Start time Last Medication Dose Route Stop Time Status Admin Albuterol Sulfate 3 ML EVERY 4 HRS/AWAKE 10/03 1200 AC 10/04 INH 2023 Albuterol Sulfate 2 PUF Q4P PRN 09/30 1645 AC INH Aspirin Buffered 81 MG DAILY 10/01 1000 AC 10/04 PO 1041 Atorvastatin Calcium 40 MG 1700 09/30 1700 AC 10/04 PO 1544 Bisacodyl 10 MG ONCE PRN 10/04 0615 DC OR 10/04 1215 Budesonide/ 2 PUF BID 09/30 2200 AC 10/04 Formoterol Fumarate INH 2010 Ceftazidime 1,000 MG Q12 10/03 2200 AC 10/04 IV 2009 Docusate Sodium 100 MG BID 09/30 2200 AC 10/04 PO 2009 Gabapentin 300 MG BID 10/02 1220 AC 10/04 PO 2010 Heparin Sodium 5,000 UNIT Q8 09/30 2200 AC 10/05 (Porcine) SC 0612 Insulin Aspart 0 AT BEDTIME 10/04 2200 AC 10/04 SC 2033 Insulin Aspart 0 TIDAC 09/30 1700 AC 10/04 SC 1657 Lorazepam 0.5 MG Q2 HRS NEEDED PRN 10/02 1230 AC IV Magnesium Oxide 400 MG DAILY 10/01 1543 AC 10/04 PO 1041 Metoprolol Tartrate 25 MG BID 10/03 1000 AC 10/04 PO 2009 Morphine Sulfate 2 MG Q3 PRN 10/01 1543 AC 10/01 IV 2344 Ondansetron HCl 4 MG Q6P PRN 09/30 1900 AC IV Oxycodone HCl 5 MG Q4-6 PRN PRN 09/30 1900 AC PO Oxycodone HCl 10 MG Q4-6 PRN PRN 09/30 1900 AC PO Oxymetazoline HCl 2 SPRAY QPM 10/02 2200 DC 10/04 ADAM 10/04 2202011 Pantoprazole Sodium 40 MG DAILY 10/01 1000 AC 10/04 IV 1041 Phosphate 250 MG PC AND AT BEDTIME 10/04 1300 DC 10/04 PO 10/04 1801 1657 Phosphate 250 MG PC AND AT BEDTIME 10/03 0900 DC 10/04 PO 1040 Polyethylene Glycol 17 GM DAILY 10/03 1000 AC 10/04 PO 1041 Sitagliptin Phosphate 50 MG DAILY 10/01 1000 AC 10/04 PO 1041 Tiotropium [place] 1 PUF DAILY 10/01 1000 AC 10/04 INH 1047 Vancomycin HCl 1,250 MG DAILY 10/04 1000 AC 10/04 Sodium Chloride 250 ML IV 1039 Vital Signs & I&O Last 24 Hrs of Vitals and I&O: Vital Signs Date Time Temp Pulse Resp B/P B/P Pulse O2 O2 Flow FiO2 Mean Ox Delivery Rate 10/05 0000 93 Nasal 2.0L Cannula 10/05 0000 98.9 89 24 124/50 93 Nasal 2.0L Cannula 10/04 2026 81 18 142/72 94 Nasal 2.0L Cannula 10/04 2009 81 148/72 10/04 1644 92 Nasal 4.0L Cannula 10/04 1600 92 Nasal 5.0L Cannula 10/04 1600 97.6 88 22 120/60 92 Nasal 5.0L Cannula 10/04 1041 70 120/70 10/04 0913 94 Nasal 4.0L Cannula 10/04 0800 97 Nasal 5.0L Cannula 10/04 0800 97.6 80 24 110/58 97 Nasal 5.0L Cannula Intake & Output 10/05 0800 10/05 0000 10/04 1600 Intake Total 240 400 Output Total Balance 240 400 Intake, IV 0 Intake, Oral 240 400 Number 1 Bowel Movements Exam General Appearance: well developed/nourished, alert, awake, comfortable, on 2 L nasal o2 Head: normal appearance Neck: normal inspection, supple, full range of motion, JVD Respiratory: normal breath sounds, chest non-tender, no respiratory distress, quiet respiration, lungs clear Cardiovascular: regular rate/rhythm Abdomen: normal bowel sounds, soft, non-tender, no organomegaly Back: normal inspection Extremities: normal inspection Neurologic/Psychiatric: no motor/sensory deficits, awake, alert, oriented x 3 Skin: intact, normal color Results Last 24 Hrs of Lab Results: Laboratory Tests 10/05/16 0602: Anion Gap 6, Estimated GFR > 60, Glucose 226 H, Calcium 9.1, Phosphorus 2.9, Magnesium 1.8, Total Bilirubin 0.8, AST 21, ALT 29, Albumin 3.0 L, CBC w Diff NO MAN DIFF REQ, RBC 3.69 L, MCV 102.3 H, MCH 33.5 H, RDW 14.5, MPV 8.9, Gran % 77.6 H, Lymphocytes % 12.2 L, Monocytes % 6.8, Eosinophils % 3.3, Basophils % 0.1, Absolute Granulocytes 8.5 H, Absolute Lymphocytes 1.3, Absolute Monocytes 0.7 H, Absolute Eosinophils 0.4, Absolute Basophils 0, PUBS MCHC 32.8 L Impression/Plan Impression/Plan Impression/Plan: 60 year old woman with past medical history of IDDM, HTN, HLD, and COPD, S/P Right thoracoscopy with wedge resection of right upper lobe lung nodule ( 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 VITALS - OR-89, RR-20, BP- 124/60 PLAN * Follow-up postthoracotomy respiratory protocol-ambulation, incentive spirometer, TRC's, pulmonary toilet. * Adequate pain management * Follow-up RUL pathology * Continue GI and DVT prophylaxis * Full code * continue gabapentin 300 mg * Aggressive spirometry * replete electrolytes as needed * can be changes to PO antibiotics. * Lisinopril and has HCTZ is still being held due to episodes of hypotension.Can be restarted. * Fingerstick glucose. * can wean off o2. * Transfer to [facility] FLUIDS -none ELECTROLYTES - Na-14o, k-4.4, po4-2.9, Mg-1.8. NUTRITION- Heart healthy diet PROPHYLAXIS- GI-,protonix, DVT-heparin CODE - full code DISPOSITION- rehab Code Status: Full Code Problem List: 1. Lung nodule 2. Hypertension 3. Diabetes 4. COPD (chronic obstructive pulmonary disease) MIKE RANDALL MD 10/05/16 0919: Impression/Plan Impression/Plan Recommendations: Mike eBrrios M.D. have examined this patient, reviewed available EMR data, personally reviewed images, discussed with resident/PA/CARTON MACHINE OPERATOR, discussed management plan with housestaff and nursing staff, discussed managment plan all of healthcare providers, discussed management plan with patient and/or family, agreed with resident/PA/CARTON MACHINE OPERATOR. The past history and parts of the chart have been autopopulated. Impression 60-year-old woman with a right upper lobe mass status post resection Plan Postthoracotomy care Incentive spirometry TRC/nebs DVT prophylaxis at all times Monitor ins and outs Monitor I's Postoperative management per cardiothoracic surgery consider dc abx, if abx deemed appropriate by surgery, can change to Avelox PO ( total abx 7 days) TTS 35 min
--- NOTE | 2016-10-05 06:55 | PN- Thoracic Surgery ---
Subjective Subjective: No complaints. Out of bed to chair. On 2L nasal cannula. She denies shortness of breath. Not requiring narcotic pain medication. Worried about pathology / treatment plan. Anticipates discharge to home soon. Objective Vital Signs and I&Os Vital Signs Date Time Temp Pulse Resp B/P B/P Pulse O2 O2 Flow FiO2 Mean Ox Delivery Rate 10/05 0000 93 Nasal 2.0L Cannula 10/05 0000 98.9 89 24 124/50 93 Nasal 2.0L Cannula 10/04 2026 81 18 142/72 94 Nasal 2.0L Cannula 10/04 2009 81 148/72 10/04 1644 92 Nasal 4.0L Cannula 10/04 1600 92 Nasal 5.0L Cannula 10/04 1600 97.6 88 22 120/60 92 Nasal 5.0L Cannula 10/04 1041 70 120/70 10/04 0913 94 Nasal 4.0L Cannula 10/04 0800 97 Nasal 5.0L Cannula 10/04 0800 97.6 80 24 110/58 97 Nasal 5.0L Cannula Intake & Output 10/05 0800 10/05 0000 10/04 1600 10/04 0800 10/04 0000 10/03 1600 Intake Total 240 400 100 860 980 Output Total 600 275 800 Balance 240 400 -500 585 180 Intake, IV 0 20 320 Intake, Oral 240 400 100 840 660 Number 1 0 Bowel Movements Output, Urine 600 275 800 Physical Exam: General - alert & oriented x 3. oob to chair. no acute distress. Lungs - poor effort. clear. chest dressings c/d/i. Cardiac - s1s2. reg. Abdomen - soft. nontender. Extremities - warm bilaterally. no c/c/e. calves soft and nontender b/l. Current Medications: Current Medications Sig/Hilton Start time Last Medication Dose Route Stop Time Status Admin Albuterol Sulfate 3 ML EVERY 4 HRS/AWAKE 10/03 1200 AC 10/04 INH 2022 Albuterol Sulfate 2 PUF Q4P PRN 09/30 1645 AC INH Aspirin Buffered 81 MG DAILY 10/01 1000 AC 10/04 PO 1041 Atorvastatin Calcium 40 MG 1700 09/30 1700 AC 10/04 PO 1544 Bisacodyl 10 MG ONCE PRN 10/04 0615 DC [place] 10/04 1215 Budesonide/ 2 PUF BID 09/30 2199 AC 10/04 Formoterol Fumarate INH 2011 Ceftazidime 1,000 MG Q12 10/03 2200 AC 10/04 IV 2009 Docusate Sodium 100 MG BID 09/30 2200 AC 10/04 PO 2009 Gabapentin 300 MG BID 10/02 1220 AC 10/04 PO 2010 Heparin Sodium 5,000 UNIT Q8 09/30 2200 AC 10/05 (Porcine) SC 0612 Insulin Aspart 0 AT BEDTIME 10/04 2200 AC 10/04 SC 2033 Insulin Aspart 0 TIDAC 09/30 1700 AC 10/04 SC 1657 Lorazepam 0.5 MG Q2 HRS NEEDED PRN 10/02 1230 AC IV Magnesium Oxide 400 MG DAILY 10/01 1543 AC 10/04 PO 1041 Metoprolol Tartrate 25 MG BID 10/03 1000 AC 10/04 PO 2009 Morphine Sulfate 2 MG Q3 PRN 10/01 1543 AC 10/01 IV 2344 Ondansetron HCl 4 MG Q6P PRN 09/30 1900 AC IV Oxycodone HCl 5 MG Q4-6 PRN PRN 09/30 1900 AC PO Oxycodone HCl 10 MG Q4-6 PRN PRN 09/30 1900 AC PO Oxymetazoline HCl 2 SPRAY QPM 10/02 2200 DC 10/04 ADAM 10/04 2202011 Pantoprazole Sodium 40 MG DAILY 10/01 1000 AC 10/04 IV 1041 Phosphate 250 MG PC AND AT BEDTIME 10/04 1300 DC 10/04 PO 10/04 1801 1657 Phosphate 250 MG PC AND AT BEDTIME 10/03 0900 DC 10/04 PO 1040 Polyethylene Glycol 17 GM DAILY 10/03 1000 AC 10/04 PO 1041 Sitagliptin Phosphate 50 MG DAILY 10/01 1000 AC 10/04 PO 1041 Tiotropium Mozelle 1 PUF DAILY 10/01 1000 AC 10/04 INH 1047 Vancomycin HCl 1,250 MG DAILY 10/04 1000 AC 10/04 Sodium Chloride 250 ML IV 1039 Results Last 48 Hours of Labs: Laboratory Tests 10/05 10/04 0602 0545 Chemistry Sodium (137 - 145 mmol/L) 140 143 Potassium (3.5 - 5.1 mmol/L) 4.4 4.7 Chloride (98 - 107 mmol/L) 104 104 Carbon Dioxide (22 - 30 mmol/L) 30 32 H Anion Gap (5 - 16) 6 7 BUN (7 - 17 mg/dL) 13 12 Creatinine (0.5 - 1.0 mg/dL) 0.5 0.6 Estimated GFR (>60 ml/min) > 60 > 60 Glucose (65 - 99 mg/dL) 226 H 219 H Calcium (8.4 - 10.2 mg/dL) 9.1 8.7 Phosphorus (2.5 - 4.5 mg/dL) 2.9 2.3 L Magnesium (1.6 - 2.3 mg/dL) 1.8 2.0 Total Bilirubin (0.2 - 1.3 mg/dL) 0.8 0.6 AST (14 - 36 U/L) 21 23 ALT (9 - 52 U/L) 29 27 Albumin (3.5 - 5.0 g/dL) 3.0 L 3.1 L Hematology CBC w Diff NO MAN DIFF REQ NO MAN DIFF REQ WBC (4.8 - 10.8 /CUMM) 11.0 H 10.4 RBC (4.20 - 5.40 /CUMM) 3.69 L 3.64 L Hgb (12.0 - 16.0 G/DL) 12.4 12.2 Hct (37 - 47 %) 37.7 37.3 MCV (81.0 - 99.0 FL) 102.3 H 102.7 H MCH (27.0 - 31.0 PG) 33.5 H 33.5 H RDW (11.5 - 14.5 %) 14.5 14.6 H Plt Count (130 - 400 /CUMM) 176 179 MPV (7.4 - 10.4 FL) 8.9 9.2 Gran % (42.2 - 75.2 %) 77.6 H 76.0 H Lymphocytes % (20.5 - 51.1 %) 12.2 L 12.6 L Monocytes % (1.7 - 9.3 %) 6.8 7.9 Eosinophils % (0 - 5 %) 3.3 3.2 Basophils % (0.0 - 2.0 %) 0.1 0.3 Absolute Granulocytes (1.4 - 6.5 /CUMM) 8.5 H 7.9 H Absolute Lymphocytes (1.2 - 3.4 /CUMM) 1.3 1.3 Absolute Monocytes (0.10 - 0.60 /CUMM) 0.7 H 0.8 H Absolute Eosinophils (0.0 - 0.7 /CUMM) 0.4 0.3 Absolute Basophils (0.0 - 0.2 /CUMM) 0 0 PUBS MCHC (33.0 - 37.0 G/DL) 32.8 L 32.6 L Assessment/Plan Assessment/Plan Patient is a 60-year-old female with a history of COPD, diabetes, hypertension, hyperlipidemia, no clear use who is now POD #5 s/p right VATS wedge resection not requiring narcotic pain medication tolerating diet f/u labs and cxr ?continue or transition iv fortaz/vanco to oral antibiotics continue IS/TRC wean off o2 hep sc - dvt ppx bp meds held (lisinopril/hctz) due to hypotension currently a gen med hold d/c planning will d/w Core Measures/Miscellaneous Venous Thromboembolism VTE Risk Factors: Age > 40, Cancer/chemo/oth therapy, Smoking, Surgery VTE Contraindications: No Contraindications VTE Diagnosis: No VTE Type: NONE VTE Confirmed by (Test): NONE Beta Stephanie Is Beta Stephanie a Home Med? Yes If Yes, Was This Ordered Today? Yes Antibiotics Is Patient on Antibiotics? No
[2016-10-05 08:00] VITALS: BP 124/62
--- NOTE | 2016-10-05 09:02 | RADIOLOGY REPORT ---
EXAMINATION: XR PORTABLE CHEST CLINICAL INFORMATION: Atelectasis. Postoperative right VATS/wedge resection. COMPARISON: Several prior chest x-rays, most recent of which is dated 10/03/2016. TECHNIQUE: Portable AP semierect view of the chest was obtained. FINDINGS: The cardiomediastinal silhouette is enlarged, unchanged. The patient is status post right VATS/wedge resection. Again seen are dense parenchymal opacities in the right mid and lower lung and in the left lung base, unchanged. Thickening of the central airways is seen. No pneumothorax is present. Bony structures are unremarkable. IMPRESSION: Unchanged appearance of the chest with ongoing consolidation in the right mid and lower lung and left lower lung. Associated small right-sided pleural effusion is likely present.
[2016-10-05 15:00] VITALS: BP 120/58
[2016-10-05 23:00] VITALS: BP 135/64
--- NOTE | 2016-10-06 05:47 | PN- Thoracic Surgery ---
Subjective Subjective: Patient continues to feel better. She coughed up small amounts of sputum overnight and states that it was brown. She has been off oxygen most of the evening and tolerated this well. Objective Vital Signs and I&Os Vital Signs Date Time Temp Pulse Resp B/P B/P Pulse O2 O2 Flow FiO2 Mean Ox Delivery Rate 10/06 0000 93 Room Air 10/05 2300 98.0 84 18 135/64 92 Room Air 10/05 2120 98.2 80 20 140/70 10/05 1848 95 Nasal 2.0L Cannula 10/05 1600 93 Nasal 2.0L Cannula 10/05 1500 98.4 72 18 120/58 93 Nasal 2.0L Cannula 10/05 1126 Nasal 2.0L Cannula 10/05 0907 78 124/62 10/05 0809 92 Nasal 2.0L Cannula 10/05 0800 93 Nasal 2.0L Cannula 10/05 0800 98.6 78 16 124/62 93 Nasal 2.0L Cannula Intake & Output 10/06 0800 10/06 0000 10/05 1600 10/05 0800 10/05 0000 10/04 1600 Intake Total 350 800 240 400 Output Total 460 750 Balance -110 50 240 400 Intake, IV 200 0 Intake, Oral 350 600 240 400 Number 2 1 Bowel Movements Output, Urine 460 750 Physical Exam: Well-developed well-nourished no apparent distress. HEENT: Atraumatic, extraocular motion intact Neck: Supple, no lymphadenopathy, trachea is midline Respiratory: No respiratory distress Dressings clean dry and intact right posterior chest, incision clean dry and intact, healing well, steri strips in place, no signs of infection, dressing changed. Right lung was mild crackles, congested cough and decreased breath sounds Heart: Regular rate and rhythm no murmur Extremities: No edema, no calf pain Neuro: Alert and oriented x3 Psych: Mood affect normal, normal memory normal judgment. Skin: Warm and dry, no rash on exposed skin Assessment/Plan Assessment/Plan Patient is a 60-year-old female with a history of COPD, diabetes, hypertension, hyperlipidemia, POD #6 s/p right VATS wedge resection complicated by right-sided ventilatory assistance/nosocomial pneumonia and increased oxygen demand postoperatively Pain is under control tolerating diet Labs and chest x-ray have been stable Appreciate pulmonology and posterior, upon discharge we will change iv fortaz/ vanco to Avelox for a total of 7 days continue IS/TRC wean off o2 Ambulatory sats hep sc - dvt ppx d/c planning: Hopefully today, discussed the patient, she prefers to go home will d/w Core Measures/Miscellaneous Venous Thromboembolism VTE Risk Factors: Age > 40, Cancer/chemo/oth therapy, Smoking, Surgery VTE Contraindications: No Contraindications VTE Diagnosis: No VTE Type: NONE VTE Confirmed by (Test): NONE Beta Stephanie Is Beta Stephanie a Home Med? Yes If Yes, Was This Ordered Today? Yes Antibiotics Is Patient on Antibiotics? No
--- NOTE | 2016-10-06 06:57 | NUR ---
PATIENT IS A GEN. MED. STABLE OVERNIGHT, VITALS SIGNS ARE STABLE, AFEBRILE, SLEEPING WELL THE WHOLE NIIGHT, NO COMPLAIN OF PAIN, INDEPENDENTLY DOING HER ROUTINE, WALKS TO THE BATHROOM INDEPENDENTLY. NOW SITTING ON CHAIR AT 0630 AND WATCHING TV.
[2016-10-06 07:00] VITALS: BP 138/60
[2016-10-06 08:00] VITALS: BP 130/70
[2016-10-06 08:23] VITALS: BP 130/70
--- NOTE | 2016-10-06 08:43 | PN- Resident CRCU ---
FRANKLYN MCDUFFIE,ARIELLA 10/06/16 0839: Subjective HPI/CRCU Issues: I saw the pt today at bedside. no over night events. On 1 L nasal o2. She is having her breakfast, sitting comfortably in her chair. She denies headache, vomitting, chest pain, diarhoea.She complaints of cough since night with pinkish sputum. She is eagar to go home today. Objective Vital Signs & I&O Last 8 Hrs of Vitals and I&O: Vital Signs Date Time Temp Pulse Resp B/P B/P Pulse O2 O2 Flow FiO2 Mean Ox Delivery Rate 10/06 0920 93 Nasal 1.0L Cannula 10/06 0823 78 130/70 10/06 0800 93 Nasal 2.0L Cannula 10/06 0800 98.0 78 18 130/70 92 Nasal 2.0L Cannula 10/06 0756 78 130/70 10/06 0700 99.1 82 19 138/60 92 Room Air 10/06 0000 93 Room Air 10/05 2300 98.0 84 18 135/64 92 Room Air 10/05 2120 98.2 80 20 140/70 10/05 1848 95 Nasal 2.0L Cannula 10/05 1600 93 Nasal 2.0L Cannula 10/05 1500 98.4 72 18 120/58 93 Nasal 2.0L Cannula Exam General Appearance: well developed/nourished, alert, awake Head: atraumatic, normal appearance Neck: normal inspection, supple, full range of motion Respiratory: normal breath sounds, chest non-tender, no respiratory distress, quiet respiration Cardiovascular: regular rate/rhythm Gastrointestinal: normal bowel sounds, soft, non-tender, no organomegaly Extremities: normal inspection Skin: intact, normal color Back: 3x2 cm pressure wound, not indurated.rednes+ Current Medications: Current Medications Sig/Hilton Start time Last Medication Dose Route Stop Time Status Admin Albuterol Sulfate 3 ML BID 10/05 2199 AC 10/06 INH 0917 Albuterol Sulfate 2 PUF Q4P PRN 09/30 1645 AC INH Aspirin Buffered 81 MG DAILY 10/01 1000 AC 10/06 PO 0757 Atorvastatin Calcium 40 MG 1700 09/30 1700 AC 10/05 PO 1716 Budesonide/ 2 PUF BID 09/30 220 AC 10/06 Formoterol Fumarate INH 0802 Ceftazidime 1,000 MG Q12 10/03 2200 DC 10/05 IV 10/05 2359 2120 Docusate Sodium 100 MG BID 09/30 2200 AC 10/05 PO 2119 Gabapentin 300 MG BID 10/02 1220 AC 10/06 PO 0758 Heparin Sodium 5,000 UNIT Q8 09/30 2200 AC 10/06 (Porcine) SC 0543 Hydrochlorothiazide 12.5 MG DAILY 10/06 1000 AC 10/06 PO 0823 Insulin Aspart 0 AT BEDTIME 10/04 2200 AC 10/05 SC 2119 Insulin Aspart 0 TIDAC 09/30 1700 AC 10/06 SC 1216 Lisinopril 20 MG DAILY 10/06 1000 AC 10/06 PO 0823 Lorazepam 0.5 MG Q2 HRS NEEDED PRN 10/02 1230 AC IV Magnesium Oxide 400 MG DAILY 10/01 1543 AC 10/06 PO 0757 Metoprolol Tartrate 25 MG BID 10/03 1000 AC 10/06 PO 0756 Morphine Sulfate 2 MG Q3 PRN 10/01 1543 AC 10/01 IV 2344 Moxifloxacin HCl 400 MG DAILY 10/06 1000 AC 10/06 PO 10/09 1001 0804 Multi-Ingred Cream/ 1 [place] BID 10/05 1027 AC 10/06 Lotion/Oil/Oint EXT 0804 Ondansetron HCl 4 MG Q6P PRN 09/30 1900 AC IV Oxycodone HCl 5 MG Q4-6 PRN PRN 09/30 1900 AC PO Oxycodone HCl 10 MG Q4-6 PRN PRN 09/30 1900 AC PO Pantoprazole Sodium 40 MG DAILY 10/01 1000 AC 10/06 IV 0802 Polyethylene Glycol 17 GM DAILY 10/03 1000 AC 10/04 PO 1041 Sitagliptin Phosphate 50 MG DAILY 10/01 1000 AC 10/06 PO 0757 Tiotropium C[place] 1 PUF DAILY 10/01 1000 AC 10/06 INH 0801 Antibiotics Antibiotic: avelox Day #: 1 Impression/Plan Impression/Problem List Impression: 1 year old woman with past medical history of IDDM, HTN, HLD, and COPD, S/P Right thoracoscopy with wedge resection of right upper lobe lung nodule ( 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 VITALS - MD-84, RR-20, BP- 112/70 PLAN * Follow-up post thoracotomy respiratory protocol-ambulation, incentive spirometer, TRC's, pulmonary toilet. * Adequate pain management * Follow-up RUL pathology * Continue GI and DVT prophylaxis * Full code * continue gabapentin 300 mg * Aggressive spirometry * replete electrolytes as needed * can be changes to PO antibiotics. * Lisinopril and has HCTZ is still being held due to episodes of hypotension.Can be restarted. * Fingerstick glucose. * can wean off o2. * Transfer to gen med FLUIDS -none NUTRITION- Heart healthy diet PROPHYLAXIS- GI-,protonix, DVT-heparin CODE - full code DISPOSITION- home Problem List: 1. Diabetes 2. Hypertension 3. Lung nodule Pain Ratin Tomorrow's Labs & Rationales: none Plan DVT/Prophylaxis: mechanical, pharmacological Code Status: Full Code MIKE RANDALL MD 10/06/16 0854: Attending MD Review Statement Attending Sign Off Attending Cosign Statement: I have: examined this patient, reviewed avalbl EMR data, personally reviewd images, discussd w/resident/PA/AIRLINE CUSTOMER SERVICE AGENT, discussed mgmt plan w/elda, discussed mgmt plan w/CM, discussed mgmt plan w/pt, agreed w/resident/PA/AIRLINE CUSTOMER SERVICE AGENT, amended to note. Other Findings: IMike M.D. have examined this patient, reviewed available EMR data, personally reviewed images, discussed with resident/PA/AIRLINE CUSTOMER SERVICE AGENT, discussed management plan with housestaff and nursing staff, discussed managment plan all of healthcare providers, discussed management plan with patient and/or family, agreed with resident/PA/AIRLINE CUSTOMER SERVICE AGENT. The past history and parts of the chart have been autopopulated. Impression 60-year-old woman with a right upper lobe mass status post resection Plan Postthoracotomy care Incentive spirometry TRC/nebs DVT prophylaxis at all times Monitor ins and outs Monitor I's Postoperative management per cardiothoracic surgery Avelox PO (total abx 7 days) awaiting dc planning
--- NOTE | 2016-10-06 10:00 | NUR ---
ATTEMPTED TO PLACE PT ON RA. UPON AMBULATION O2 SAT DECREASED TO 80% ON RA. AT REST O2 SAT REMAINS 88% ON RA. PT PLACED ON 2LNC WITH O2 SAT 95%. [facility] AND DR KAY NOTIFIED.
--- NOTE | 2016-10-06 10:10 | Patient Discharge Instructions ---
Discharge Instructions General Discharge Information You were seen/treated for: Right upper lobe lung nodule You had these procedures: Surgery Date: 09/30/16 Name of Procedure: Right thoracoscopy with wedge resection right upper lobe lung nodule Watch for these problems: fever>101.3, increased pain, redness/swelling/drainage, dizziness, shortness of breath, chest pains No bath, but you may shower: Yes Other wound care: ok to remove outer dressings to shower. leave white steri strips in place. dry guaze dressing changes as needed. Diet Continue normal diet: No Recommended Diet: Diabetic DAILY Calorie limit of: 2000 Activity Full Activity/No Limits: No Activity Self Limited: Yes Pounds, do NOT lift more than: 10 Other activity limits: no heavy lifting. no strenuous activity. Acute Coronary Syndrome Inclusion Criteria At DC or during hospital stay patient has or had the following: ACS DIAGNOSIS No Discharge Core Measures Meds if any: Prescribed or Continued at Discharge Meds if any: NOT Prescribed or Continued at Discharge Congestive Heart Failure Inclusion Criteria At DC or during hospital stay patient has or had the following: CHF DIAGNOSIS No Discharge Core Measures Meds if any: Prescribed or Continued at Discharge Meds if any: NOT Prescribed or Continued at Discharge Cerebrovascular accident Inclusion Criteria At DC or during hospital stay patient has or had the following: CVA/TIA Diagnosis No Discharge Core Measures Meds if any: Prescribed or Continued at Discharge Meds if any: NOT Prescribed or Continued at Discharge Venous thromboembolism Inclusion Criteria VTE Diagnosis No VTE Type NONE VTE Confirmed by (Test) NONE Discharge Core Measures - Per Current guidelines, there needs to be overlap - treatment for the first 5 days of Warfarin therapy. - If discharged on Warfarin prior to 5 days of - overlap therapy, the patient will need to be - assessed for post discharge needs including - *Post discharge parental anticoagulation - *Warfarin and/or parental anticoagulation education - *Follow up date to check INR post discharge At least 5 days overlap therapy as Inpatient No Meds if any: Prescribed or Continued at Discharge Note: Overlap Therapy is Warfarin and Anticoagulant Meds if any: NOT Prescribed or Continued at Discharge
[2016-10-06] MEDS ORDERED: MOXIFLOXACIN H400 M2 PO (10:14)
[2016-10-06] MEDS ORDERED: OXYCODONE HCL5 M1 PO (10:14)
[2016-10-06] MEDS ORDERED: DOCUSATE SODIU100 M3 PO (10:14)
== END 2016-10-06 14:45 | disposition home health service (06) | DRG 167 ==
LOC: SDA 02:40 → ENRESERV 17:08 → ENTRNSPT 17:45 → EDTRNSPT 17:48 → CMPTRNSPT 18:22 → CRI 18:44
PROVIDERS: Physician Assistant; Physician Assistant Surgical; ADMIT Thoracic Surgery (Cardiothoracic Vascular Surgery)
PROC: 0BBC4ZX Excision of Right Upper Lung Lobe, Percutaneous Endoscopic Approach, Diagnostic (ICD-10-PCS; principal; 2016-09-30)
DX: C34.11 Malignant neoplasm of upper lobe, right bronchus or lung (principal); F10.239 Alcohol dependence with withdrawal, unspecified; J95.851 Ventilator associated pneumonia; N17.9 Acute kidney failure, unspecified; I95.9 Hypotension, unspecified; J44.9 Chronic obstructive pulmonary disease, unspecified; E83.39 Other disorders of phosphorus metabolism; J95.811 Postprocedural pneumothorax; I10 Essential (primary) hypertension; E78.5 Hyperlipidemia, unspecified; E11.9 Type 2 diabetes mellitus without complications; Z79.4 Long term (current) use of insulin; Y84.8 Other medical procedures as the cause of abnormal reaction of the patient, or of later complication, without mention of misadventure at the time of the procedure; Y92.239 Unspecified place in hospital as the place of occurrence of the external cause; F41.9 Anxiety disorder, unspecified
CPT/HCPCS: 86695; CCU; 36415; 82436; 87040; 87070; 87086; 93005; 93010; 97110-GO; 97116-GO; 97161-GP; 97530-GO; C9290; C9399; J0131; J0690; J0713; J1644; J2060; J2405; J3370; J3490; J7040; J7042